=== PATIENT | female | born 1950 | race Caucasian/White ===

== ENCOUNTER 2017-01-27 14:57 | Inpatient (IN) | payer OTHER, MEDICARE ==
[~2017-01-27] VITALS: Ht 165.1 cm; Wt 100.1 kg
[2017-01-27 15:14] VITALS: BP 165/92; PULSE 95; RESP 18; TEMP 98.3; O2SAT 96
[2017-01-27] MEDS ORDERED: SODIUM CHLOR 0.9% 1000 ML INJ 1,000 ML IV SCH (15:32)
--- NOTE | 2017-01-27 15:40 | PD ---
HPI Chief Complaint: Abdominal Pain Time Seen by Provider: 15:26 Travel History International Travel<30 days: No Contact w/Intl Traveler<30days: No Traveled to known affect area: No History of Present Illness HPI 66-year-old female here for evaluation of lower abdominal pain and diarrhea. The patient reports that the symptoms have been going on for last 5 days. She denies melena or hematochezia. Pain is described as sharp and cramping, intermittent, worse with movement and palpation. History of cholecystectomy and appendectomy. She denies fevers or chills. She feels nauseous but has not vomited. No urinary symptoms. No vaginal bleeding or discharge. She has had diverticulitis in the past, and states that this feels very similar. PFSH Past Medical History Diverticulitis: Yes Kidney Stones: Yes Tetanus Vaccination: < 5 Years Influenza Vaccination: No ?: Not Menopausal: Yes Past Surgical History Abdominal Surgery: Yes (Ex. lap.) Appendectomy: Yes Cholecystectomy: Yes Social History Alcohol Use: No Tobacco Use: No Substance Use: No Allergies-Medications (Allergen,Severity, Reaction): Coded Allergies: Barbiturates (Verified Allergy, Severe, Vomiting, hives, 01/27/17) Reported Meds & Prescriptions Reported Meds & Active Scripts Active No Active Prescriptions or Reported Medications Review of Systems Except as stated in HPI: all other systems reviewed are Neg Physical Exam Narrative GENERAL: Well-developed, well-nourished, comfortable, no acute distress. SKIN: Focused skin assessment warm/dry. HEAD: Atraumatic. Normocephalic. EYES: Pupils equal and round. No scleral icterus. No injection or drainage. ENT: Mucous membranes pink and moist. NECK: Trachea midline. No JVD. CARDIOVASCULAR: Regular rate and rhythm. No murmur appreciated. RESPIRATORY: No accessory muscle use. Clear to auscultation. Breath sounds equal bilaterally. GASTROINTESTINAL: Abdomen soft, nondistended. Mild diffuse tenderness without peritoneal signs. Normal bowel sounds. No hernias. MUSCULOSKELETAL: No obvious deformities. No clubbing. No cyanosis. No edema. NEUROLOGICAL: Awake and alert. No obvious cranial nerve deficits. Motor grossly within normal limits. Normal speech. PSYCHIATRIC: Appropriate mood and affect; insight and judgment normal. Data Data Last Documented VS Vital Signs Date Time Temp Pulse Resp B/P Pulse Ox O2 Delivery O2 Flow Rate FiO2 01/27/17 17:30 88 18 144/61 95 Room Air 01/27/17 15:14 98.3 Orders Complete Blood Count With Diff (01/27/17 15:32) Comprehensive Metabolic Panel (01/27/17 15:32) Lipase (01/27/17 15:32) Prothrombin Time / Inr (Pt) (01/27/17 15:32) Act Partial Throm Time (Ptt) (01/27/17 15:32) Urinalysis - C+S If Indicated (01/27/17 15:32) Ct Abd/Pel W Iv Contrast(Rout) (01/27/17 15:32) Iv Access Insert/Monitor (01/27/17 15:32) Ecg Monitoring (01/27/17 15:32) Oximetry (01/27/17 15:32) Morphine Inj (Morphine Inj) (01/27/17 15:45) Ondansetron Inj (Zofran Inj) (01/27/17 15:45) Sodium Chlor 0.9% 1000 Ml Inj (Ns 1000 M (01/27/17 15:32) Sodium Chloride 0.9% Flush (Ns Flush) (01/27/17 15:45) Urine Culture (01/27/17 15:45) Ceftriaxone Inj (Rocephin Inj) (01/27/17 17:15) Iohexol 350 Inj (Omnipaque 350 Inj) (01/27/17 17:22) Ciprofloxacin 400 Mg Premix (Cipro 400 M (01/27/17 17:45) Metronidazole 500 Mg Inj (Flagyl 500 Mg (01/27/17 17:45) Consult Colorectal Surgery (01/27/17 ) Admit Order (Ed Use Only) (01/27/17 18:25) Labs Laboratory Tests Test 01/27/17 15:45 White Blood Count 13.5 TH/MM3 Red Blood Count 5.00 MIL/MM3 Hemoglobin 14.3 GM/DL Hematocrit 42.2 % Mean Corpuscular Volume 84.3 FL Mean Corpuscular Hemoglobin 28.6 PG Mean Corpuscular Hemoglobin 33.9 % Concent Red Cell Distribution Width 11.7 % Platelet Count 432 TH/MM3 Mean Platelet Volume 8.1 FL Neutrophils (%) (Auto) 68.5 % Lymphocytes (%) (Auto) 19.1 % Monocytes (%) (Auto) 9.5 % Eosinophils (%) (Auto) 0.2 % Basophils (%) (Auto) 2.7 % Neutrophils # (Auto) 9.2 TH/MM3 Lymphocytes # (Auto) 2.6 TH/MM3 Monocytes # (Auto) 1.3 TH/MM3 Eosinophils # (Auto) 0.0 TH/MM3 Basophils # (Auto) 0.4 TH/MM3 CBC Comment DIFF FINAL Differential Comment Prothrombin Time 11.9 SEC Prothromb Time International 1.1 RATIO Ratio Activated Partial 36.0 SEC Thromboplast Time Urine Collection Type CLEAN CATCH Urine Color YELLOW Urine Turbidity SLIGHT Urine pH 6.0 Urine Specific [place] 1.018 Urine Protein 30 mg/dL Urine Glucose (UA) NEG mg/dL Urine Ketones TRACE mg/dL Urine Occult Blood MOD Urine Nitrite NEG Urine Bilirubin NEG Urine Leukocyte Esterase SMALL Urine RBC 4-9 /hpf Urine WBC 15-19 /hpf Urine WBC Clumps FEW Urine Squamous Epithelial 6-8 /hpf Cells Urine Amorphous Sediment FEW Urine Bacteria FEW /hpf Urine Hyaline Casts 0-2 /lpf Microscopic Urinalysis Comment CULTURE INDICATED Urine Collection Time 1540 Sodium Level 140 MEQ/L Potassium Level 3.7 MEQ/L Chloride Level 103 MEQ/L Carbon Dioxide Level 23.8 MEQ/L Anion Gap 13 MEQ/L Blood Urea Nitrogen 9 MG/DL Creatinine 0.85 MG/DL Estimat Glomerular Filtration 67 ML/MIN Rate Random Glucose 115 MG/DL Calcium Level 9.5 MG/DL Total Bilirubin 0.8 MG/DL Aspartate Amino Transf 27 U/L (AST/SGOT) Alanine Aminotransferase 32 U/L (ALT/SGPT) Alkaline Phosphatase 104 U/L Total Protein 8.1 GM/DL Albumin 3.6 GM/DL Lipase 106 U/L [facility] Medical Decision Making Medical Screen Exam Complete: Yes Emergency Medical Condition: Yes Differential Diagnosis Diverticulitis, colitis, UTI, cystitis, Narrative Course Vital signs show heart rate 95, blood pressure 165/92, pulse ox 96% on room air , oral temp of 98.3F. CBC shows WBC 13.5, hemoglobin 14.3, hematocrit 42.2, platelets 432. CMP is unremarkable. Lipase is 106. UA shows 30 protein, trace ketones, moderate occult blood, small leukocyte esterase, 4-9 RBCs, 15-19 wbc's, a few WBC clumps, 6-8 epithelial cells, negative nitrites, CT abdomen pelvis: CONCLUSION: 1. Acute diverticulitis with small abscess appears to be in the wall of the colon. 2. Left adnexal cystic and fluid containing process possibly in the left ovary or extension of the above-mentioned abscess. 3. Fatty liver. Patient was made aware of all findings. She was initially given a dose of Rocephin after her UA resulted. After her CT abdomen pelvis resulted, she was written for a dose of Cipro and Flagyl. There is mild abdominal tenderness. No peritoneal signs. Case discussed with on-call colorectal surgeon Dr. Bach. She like patient to be transferred to the main hospital where she will see the patient in consultation and discussed the case with interventional radiology for possible IR drainage. Case discussed with hospitalist Dr. Kahn who will admit the patient to his service. Patient made aware of all findings and plan for admission. Diagnosis Primary Impression: Abscess of sigmoid colon due to diverticulitis Admitting Information Admitting Physician Requests: Admit Scripts No Active Prescriptions or Reported Meds Erasmo Stephenson MD Jan 27, 2017 15:40
[2017-01-27 15:45] VITALS: O2SAT 97
[2017-01-27] MEDS ORDERED: MORPHINE SULFATE 4 MG/ML INJ IV PUSH ONE (15:45)
[2017-01-27] MEDS ORDERED: ONDANSETRON HCL 4 MG/2 ML VIAL IVP ONE (15:45)
[2017-01-27] MEDS ORDERED: SODIUM CHLORIDE 0.9% FLUSH 10 ML FLUSH IV FLUSH PRN ×2 (15:45→19:15)
[2017-01-27 15:57] LABS: AUTOMATED NEUTROPHIL # 9.2 TH/MM3 (1.8-7.7); BASOPHIL # 0.4 TH/MM3 (0-0.2); BASOPHIL % 2.7 % (0.0-2.0); EOSINOPHIL % 0.2 % (0.0-4.0); HEMATOCRIT 42.2 % (35.0-46.0); HEMO FLAGS DIFF FINAL; LYMPH % 19.1 % (9.0-44.0); LYMPHOCYTE # 2.6 TH/MM3 (1.0-4.8); MEAN CELL VOLUME 84.3 FL (80.0-100.0); MEAN CORPUSCULAR HEMOGLOBIN 28.6 PG (27.0-34.0); MEAN CORPUSCULAR HGB CONC 33.9 % (32.0-36.0); MONO % 9.5 % (0.0-8.0); NEUT % 68.5 % (16.0-70.0); PLATELET COUNT 432 TH/MM3 (150-450); RED CELL DISTRIBUTION WIDTH 11.7 % (11.6-17.2); WHITE BLOOD COUNT 13.5 TH/MM3 (4.0-11.0)
[2017-01-27 15:59] LABS: GLUCOSE,URINE NEG (NEG); KETONE, URINE TRACE mg/dL (NEG); NITRITE,URINE NEG (NEG)
[2017-01-27 16:04] LABS: CHLORIDE 103 MEQ/L (98-107); POTASSIUM 3.7 MEQ/L (3.5-5.1); SODIUM (NA) 140 MEQ/L (136-145)
[2017-01-27 16:05] LABS: BLOOD, URINE MOD (NEG); METHOD OF COLLECTION CLEAN CATCH; URINE COLOR YELLOW (YELLW/STRAW)
[2017-01-27 16:06] LABS: WBC, URINE 15-19 /hpf (0-5)
[2017-01-27 16:07] LABS: BACTERIA, URINE FEW /hpf; COMMENT (UR) CULTURE INDICATED; COMMENT2 (UR) MUCOUS PRESENT; CULTURE IF INDICATED CULTURE INDICATED; HYALINE CAST, URINE 0-2 /lpf (RARE); INTERNATIONAL NORMALIZED RATIO 1.1 RATIO; PROTHROMBIN TIME - PATIENT 11.9 SEC (9.8-11.6)
[2017-01-27 16:08] LABS: ANION GAP 13 MEQ/L (5-15); BICARBONATE 23.8 MEQ/L (21.0-32.0); BLOOD UREA NITROGEN 9 MG/DL (7-18)
[2017-01-27 16:11] LABS: ALT (GPT) 32 U/L (10-53); AST (GOT) 27 U/L (15-37); GLOMERULAR FILTRATION RATE 67 ML/MIN (>89)
[2017-01-27 16:12] LABS: TOTAL BILIRUBIN ADULT 0.8 MG/DL (0.2-1.0)
[2017-01-27 16:13] LABS: ALKALINE PHOSPHATASE 104 U/L (45-117)
[2017-01-27] MEDS ORDERED: cefTRIAXone INJ 1,000 MG in SODIUM CHLORIDE 0.9% INJ 100 ML IV ONE (17:15)
[2017-01-27] MEDS ORDERED: IOHEXOL 350 MG/ML 10 ML VIAL (for RAD DIAG) IV ONE (17:22)
[2017-01-27 17:30] VITALS: BP 144/61; PULSE 88; RESP 18; O2SAT 95
--- NOTE | 2017-01-27 17:38 | RADHPO ---
EXAM DATE/TIME: 01/27/2017 17:01 [place] COMPARISON: No previous studies available for comparison. INDICATIONS : Lower abdomen pain for five days. IV CONTRAST: 85 cc Omnipaque 350 (iohexol) IV ORAL CONTRAST: No oral contrast ingested. RADIATION DOSE: 21.26 CTDIvol (mGy) MEDICAL HISTORY : Diverticulitis. Renal calculi. SURGICAL HISTORY : Cholecystectomy. Appendectomy. ENCOUNTER: Initial ACUITY: 4 - 6 days PAIN SCALE: 7/10 LOCATION: Bilateral lower quadrant TECHNIQUE: Volumetric scanning of the abdomen and pelvis was performed. Using automated exposure control and ad justment of the mA and/or kV according to patient size, radiation dose was kept as low as reasonably achievable to obtain optimal diagnostic quality images. FINDINGS: CT Abdomen: The spleen, pancreas, adrenals are unremarkable. There is no evidence for any appreciable pathological adenopathy, free fluid, or bowel obstruction. The liver is fatty without focal lesions or technique. Tiny pericardial effusion is seen. There are simple cysts in both kidneys the largest on the left measures 2.6 cm in size. There is evidence for prior cholecystectomy. CT pelvis: There are numerous diverticuli in sigmoid colon with an area of diverticulitis which also demonstrates an approximate 2.6 cm abscess with gas level within it. In the left adnexa there is an a pproximate 5.5 cm fluid containing structure could potentially be extension of the above-mentioned ab scess or possibly in the left ovary. Moderate degenerative arthritis is seen in the left hip joint. CONCLUSION: 1. Acute diverticulitis with small abscess appears to be in the wall of the colon. 2. Left adnexal cystic and fluid containing process possibly in the left ovary or extension of the ab ove-mentioned abscess. 3. Fatty liver. Andrea Duke MD on January 27, 2017 at 17:31 Board Certified Radiologist. This report was verified electronically.
[2017-01-27] MEDS ORDERED: metroNIDAZOLE 500 MG INJ 100 ML IV ONE (17:45)
[2017-01-27] MEDS ORDERED: CIPROFLOXACIN 400 MG PREMIX 200 ML IV ONE (17:45)
[2017-01-27 19:14] VITALS: BP 140/72; PULSE 85; RESP 18; O2SAT 96
[2017-01-27] MEDS ORDERED: ENALAPRILAT 1.25 MG/ML VIAL IV PUSH PRN (19:15)
[2017-01-27] MEDS ORDERED: NALOXONE HCL 0.4 MG/ML AMP IV PRN (19:15)
[2017-01-27] MEDS ORDERED: HYDROmorphone HCL PF 1 MG/ML VIAL IV PRN (19:15)
[2017-01-27] MEDS ORDERED: ACETAMINOPHEN 325 MG TAB PO PRN ×2 (19:15)
[2017-01-27] MEDS ORDERED: TEMAZEPAM 15 MG CAP PO PRN (19:15)
[2017-01-27] MEDS ORDERED: KETOROLAC TROMETHAMINE 30 MG/ML (IVP) VIAL IVP PRN (19:15)
--- NOTE | 2017-01-27 19:15 | HHI.HP ---
[facility] No Primary Care Physician Admission Diagnosis Sigmoid Diverticulitis with Abscess Diagnoses: (1) Abscess of sigmoid colon due to diverticulitis (2) Elevated blood pressure reading (3) Leukocytosis (4) Sepsis Chief Complaint: Abdominal pain Travel History International Travel<30 Days: No Contact w/Intl Traveler <30 Da: No Traveled to Known Affected Are: No Sepsis Criteria SIRS Criteria (2 or more): Heart rate over 90, WBC > 27564, < 4000 or > 10% bands Sepsis Criteria (SIRS+source): Infect source susp/known Criteria Outcome: Meets sepsis criteria History of Present Illness 66-year-old female with a history of diverticular disease presented to the ED for evaluation of abdominal pain, bloating 5-6 days duration associated with diarrhea, nausea without any emesis. Pain is rated 10/10 in intensity and described as cramping, intermittent and worse with movement. Patient reports prior history of diverticular disease and states she's tried conservative treatment at home with full liquid and amoxicillin 500 mg 1 tablet by mouth twice a day 2 1/2 days without any improvement which she completed this past Sunday. She denies any febrile episode or associated GI bleed. CT Abdomen/ pelvis in ED reveals Acute diverticulitis with small abscess appears to be in the wall of the colon and abnormal labs include WBC 13.5 Review of Systems Other 12 systems reviewed and are negative except for the one mentioned in history of present illness Past Family Social History Past Medical History Diverticular disease Prior history of diverticulitis History of nephrolithiasis Past Surgical History Abdominal Surgery: Yes (Ex. lap.) Appendectomy: Yes Cholecystectomy: Yes Reported Medications Not Currently on any medication Allergies: Coded Allergies: Barbiturates (Verified Allergy, Severe, Vomiting, hives, 01/27/17) Family History Mother had leukemia, from brain aneurysm Father had polio Social History Alcohol Use: No Tobacco Use: No Substance Use: No Physical Exam Vital Signs Vital Signs Date Time Temp Pulse Resp B/P Pulse Ox O2 Delivery O2 Flow Rate FiO2 01/27/17 17:30 88 18 144/61 95 Room Air 01/27/17 16:00 18 4/29/17 15:45 97 Room Air 01/27/17 15:14 98.3 95 18 165/92 96 Physical Exam GENERAL: This is a well-nourished, well-developed patient, in no apparent distress. SKIN: No rashes, ecchymoses or lesions. Cool and dry. HEAD: Atraumatic. Normocephalic. No temporal or scalp tenderness. EYES: Pupils equal round and reactive. Extraocular motions intact. No scleral icterus. No injection or drainage. ENT: Nose without bleeding, purulent drainage or septal hematoma. Throat without erythema, tonsillar hypertrophy or exudate. Uvula midline. Airway patent. NECK: Trachea midline. No JVD or lymphadenopathy. Supple, nontender, no meningeal signs. CARDIOVASCULAR: Regular rate and rhythm without murmurs, gallops, or rubs. RESPIRATORY: Clear to auscultation. Breath sounds equal bilaterally. No wheezes , rales, or rhonchi. GASTROINTESTINAL: Abdomen soft, mildly tender, nondistended. No hepato- splenomegaly, or palpable masses. No guarding. Positive bowel sounds MUSCULOSKELETAL: Extremities without clubbing, cyanosis, or edema. No joint tenderness, effusion, or edema noted. No calf tenderness. Negative Homans sign bilaterally. NEUROLOGICAL: Awake and alert. Cranial nerves II through XII intact. Motor and sensory grossly within normal limits. Five out of 5 muscle strength in all muscle groups. Normal speech. Laboratory Laboratory Tests Test 01/27/17 15:45 White Blood Count 13.5 Red Blood Count 5.00 Hemoglobin 14.3 Hematocrit 42.2 Mean Corpuscular Volume 84.3 Mean Corpuscular Hemoglobin 28.6 Mean Corpuscular Hemoglobin 33.9 Concent Red Cell Distribution Width 11.7 Platelet Count 432 Mean Platelet Volume 8.1 Neutrophils (%) (Auto) 68.5 Lymphocytes (%) (Auto) 19.1 Monocytes (%) (Auto) 9.5 Eosinophils (%) (Auto) 0.2 Basophils (%) (Auto) 2.7 Neutrophils # (Auto) 9.2 Lymphocytes # (Auto) 2.6 Monocytes # (Auto) 1.3 Eosinophils # (Auto) 0.0 Basophils # (Auto) 0.4 CBC Comment DIFF FINAL Differential Comment Prothrombin Time 11.9 Prothromb Time International 1.1 Ratio Activated Partial 36.0 Thromboplast Time Urine Collection Type CLEAN CATCH Urine Color YELLOW Urine Turbidity SLIGHT Urine pH 6.0 Urine Specific [place] 1.018 Urine Protein 30 Urine Glucose (UA) NEG Urine Ketones TRACE Urine Occult Blood MOD Urine Nitrite NEG Urine Bilirubin NEG Urine Leukocyte Esterase SMALL Urine RBC 4-9 Urine WBC 15-19 Urine WBC Clumps FEW Urine Squamous Epithelial 6-8 Cells Urine Amorphous Sediment FEW Urine Bacteria FEW Urine Hyaline Casts 0-2 Microscopic Urinalysis Comment CULTURE INDICATED Urine Collection Time 1540 Sodium Level 140 Potassium Level 3.7 Chloride Level 103 Carbon Dioxide Level 23.8 Anion Gap 13 Blood Urea Nitrogen 9 Creatinine 0.85 Estimat Glomerular Filtration 67 Rate Random Glucose 115 Calcium Level 9.5 Total Bilirubin 0.8 Aspartate Amino Transf 27 (AST/SGOT) Alanine Aminotransferase 32 (ALT/SGPT) Alkaline Phosphatase 104 Total Protein 8.1 Albumin 3.6 Lipase 106 Date/Time Procedure Status Source Growth 01/27/17 15:45 Urine Culture Received Urine Clean Catch Pending Result Diagram: 01/27/17 1545 01/27/17 1545 Imaging Last Impressions Abdomen/Pelvis CT 01/27/17 1532 Signed Impressions: Service Date/Time: Sunday, January 27, 2017 17:01 - CONCLUSION: 1. Acute diverticulitis with small abscess appears to be in the wall of the colon. 2. Left adnexal cystic and fluid containing process possibly in the left ovary or extension of the above-mentioned abscess. 3. Fatty liver. Andrea Duke MD Assessment and Plan Problem List: (1) Sepsis ICD Code: A41.9 Status: Acute (2) Diverticulitis of large intestine with abscess without bleeding ICD Code: K57.20 Status: Acute (3) Abscess of sigmoid colon due to diverticulitis ICD Code: K57.20 Status: Acute (4) Leukocytosis ICD Code: D72.829 Status: Acute (5) Elevated blood pressure reading ICD Code: R03.0 Status: Acute (6) Diverticulitis large intestine ICD Code: K57.32 Status: Acute Assessment and Plan 66-year-old female with Sepsis: Meets sepsis criteria; Heart rate over 90, WBC > 89423, < 4000 or > 10 % bands, Infect source susp/known (abscess due to diverticulitis). Check lactic acid, UA Status post Rocephin, Cipro, Flagyl IV 1 in ED, continue with antibiotics and monitor culture Acute diverticulitis Diverticulitis of large intestine with abscess without bleeding Abscess of the sigmoid colon due to diverticulitis CT abdomen/pelvis noted and review by me with finding of Acute diverticulitis with small abscess appears to be in the wall of the colon Status post Rocephin, Flagyl and Cipro IV 1 in ED, continue with antibiotics pending culture Nothing by mouth, IV fluid hydration and pain management accordingly Consult colorectal surgery. Consider evaluation from interventional radiology for evaluation for percutaneous drainage of abscess Transfer Patient to [facility] May repeat abdomen/pelvics CT within the next 48 hours Leukocytosis Secondary To current to above infectious process, treat as above. Check UA Elevated blood pressure Patient with no known history of hypertension, maybe secondary to poorly controlled pain Pain management accordingly Vasotec when necessary however consider starting oral antihypertensive medication if no improvement DVT prophylaxis: Bilateral SCDs GI prophylaxis: PPI Code Status Full code Discussed Condition With Patient, ED physician Physician Certification 2 Midnight Certification Type: Admission for Inpatient Services Order for Inpatient Services The services are ordered in accordance with Medicare regulations or non- Medicare payer requirements, as applicable. In the case of services not specified as inpatient-only, they are appropriately provided as inpatient services in accordance with the 2-midnight benchmark. Estimated LOS (days): 2 days is the estimated time the patient will need to remain in the hospital, assuming treatment plan goals are met and no additional complications. Post-Hospital Plan: Not yet determined Deni Kahn MD Jan 27, 2017 19:15
[2017-01-27] MEDS: SODIUM CHLOR 0.9% 1000 ML INJ 1,000 ML IV SCH (20:00)
[2017-01-27 20:57] VITALS: BP 141/74; PULSE 82; RESP 18; O2SAT 97
[2017-01-27] MEDS: LACTOBACILLUS ACIDOPHILUS TAB PO SCH (21:00)
[2017-01-27] MEDS: SODIUM CHLORIDE 0.9% FLUSH 10 ML FLUSH IV FLUSH SCH (21:00)
[2017-01-27 22:00] VITALS: BP 173/74; PULSE 90; RESP 20; TEMP 97; O2SAT 96
[2017-01-27] MEDS: KETOROLAC TROMETHAMINE 30 MG/ML (IVP) VIAL IVP PRN (23:14)
[2017-01-28] VITALS: BP 151/71
[2017-01-28] MEDS: metroNIDAZOLE 500 MG INJ 100 ML IV SCH ×3 (02:30→16:56)
[2017-01-28 04:00] VITALS: BP 137/60; PULSE 76; RESP 20; TEMP 95.9; O2SAT 97
[2017-01-28] MEDS: ONDANSETRON HCL 4 MG/2 ML VIAL IVP PRN (06:41)
[2017-01-28 08:00] VITALS: BP 127/62; PULSE 69; RESP 16; TEMP 98.3; O2SAT 95
--- NOTE | 2017-01-28 08:13 | HHI.PR ---
Subjective Remarks Feels improved today. Less abdominal pain. Has been NPO. States last time she ate regular food was Sunday, clears since then. Denies fevers/chills, n/v/d/c D/W nurse Objective Vital Signs Date Time Temp Pulse Resp B/P Pulse Ox O2 Delivery O2 Flow Rate FiO2 01/28/17 04:00 95.9 76 20 137/60 97 01/28/17 00:00 151/71 01/27/17 22:00 97.0 90 20 173/74 96 01/27/17 21:23 84 18 97 01/27/17 20:57 82 18 141/74 97 Room Air 01/27/17 19:14 85 18 140/72 96 Room Air 01/27/17 17:30 88 18 144/61 95 Room Air 01/27/17 16:00 18 01/27/17 15:45 97 Room Air 01/27/17 15:14 98.3 95 18 165/92 96 I/O 01/27/17 01/27/17 01/27/17 01/28/17 01/28/17 01/28/17 07:00 15:00 23:00 07:00 15:00 23:00 Intake Total 1100 ml 387 ml Output Total 400 ml Balance 1100 ml -13 ml Intake Oral 0 ml IV Total 1100 ml 387 ml Output Urine Total 400 ml Result Diagram: 01/27/17 1545 01/27/17 1545 Imaging Last Impressions Abdomen/Pelvis CT 01/27/17 1532 Signed Impressions: Service Date/Time: Friday, January 27, 2017 17:01 - CONCLUSION: 1. Acute diverticulitis with small abscess appears to be in the wall of the colon. 2. Left adnexal cystic and fluid containing process possibly in the left ovary or extension of the above-mentioned abscess. 3. Fatty liver. Andrea Duke MD Objective Remarks GENERAL: This is a well-nourished, well-developed patient, in no apparent distress. SKIN: No rashes, ecchymoses or lesions. Cool and dry. CARDIOVASCULAR: Regular rate and rhythm without murmurs, gallops, or rubs. RESPIRATORY: Clear to auscultation. Breath sounds equal bilaterally. No wheezes , rales, or rhonchi. GASTROINTESTINAL: Positive bowel sounds. Abdomen soft, mildly tender in LLQ, other quadrants nontender, nondistended. MUSCULOSKELETAL: Extremities without clubbing, cyanosis, or edema. NEUROLOGICAL: Awake and alert. Normal speech. A/P Problem List: (1) Leukocytosis ICD Code: D72.829 (2) Sepsis ICD Code: A41.9 (3) Elevated blood pressure reading ICD Code: R03.0 (4) Abscess of sigmoid colon due to diverticulitis ICD Code: K57.20 (5) Diverticulitis large intestine ICD Code: K57.32 (6) Diverticulitis of large intestine with abscess without bleeding ICD Code: K57.20 Assessment and Plan A/P: Diverticular disease Prior history of diverticulitis History of nephrolithiasis Appendectomy Cholecystectomy 66-year-old female with: Sepsis: Lactic acid 1.1 Urine culture pending Continue RocephinGaryro, Flagyl IV Acute diverticulitis: Diverticulitis of large intestine with abscess without bleeding Abscess of the sigmoid colon due to diverticulitis Consulted colorectal surgery. Consider evaluation from interventional radiology for evaluation for percutaneous drainage of abscess Continue with antibiotics as above, follow culture Nothing by mouth, IV fluid hydration and pain management Consider repeat abdomen/pelvics CT within 48hrs of admission Leukocytosis Secondary to above Elevated blood pressure: improved No known history of hypertension, likely secondary to pain Pain management Vasotec when necessary DVT prophylaxis: Bilateral SCDs GI prophylaxis: PPI Code Status Full code Yi Melgar MD Jan 28, 2017 08:13 Pain management Vasotec when necessary, Consider starting oral antihypertensive medication if no improvement DVT prophylaxis: Bilateral SCDs GI prophylaxis: PPI Code Status Full code Yi Melgar MD Jan 28, 2017 08:13
[2017-01-28] MEDS: LACTOBACILLUS ACIDOPHILUS TAB PO SCH ×2 (08:46→22:08)
[2017-01-28] MEDS: CIPROFLOXACIN 400 MG PREMIX 200 ML IV SCH ×2 (08:46→22:09)
[2017-01-28] MEDS: PANTOPRAZOLE SODIUM 40 MG VIAL IV PUSH SCH (08:46)
[2017-01-28] MEDS: SODIUM CHLORIDE 0.9% FLUSH 10 ML FLUSH IV FLUSH SCH ×2 (08:47→21:00)
[2017-01-28] MEDS: SODIUM CHLOR 0.9% 1000 ML INJ 1,000 ML IV SCH ×2 (08:47→22:07)
[2017-01-28 12:00] VITALS: BP 129/65; PULSE 67; RESP 18; TEMP 97.7; O2SAT 96
--- NOTE | 2017-01-28 13:01 | MB ---
cc: PEÑA GARCÍA M.D. DATE OF CONSULTATION: 01/28/2017. REASON FOR CONSULTATION / CHIEF COMPLAINT: Diverticulitis with contained perforation. HISTORY OF PRESENT ILLNESS: The patient is a 66-year-old female with three to four previous attacks of diverticular disease. She began having pain on Sunday of this week, five days prior to today, and came to the emergency room yesterday. She describes left lower quadrant pain, with elevated temperatures. She has had no nausea or vomiting. She describes no diarrhea or constipation to me although she did reportedly have diarrhea when she came to the emergency department. She did say that she had amoxicillin at home and began taking that twice daily without improvement. She has had three or four previous episodes of diverticulitis, the most recent being about a year and a half ago. Her most recent colonoscopy was about four years ago and she did have removal of two small polyps and they had recommended a 5-year recall. Her normal bowel pattern is every other day without straining. She denies any bright red blood or melena. She denies any perianal pain. She denies any family history of colorectal cancer or polyps. PAST MEDICAL HISTORY: By report of the patient, it is negative but she does admit she has not been to a doctor in at least five years. PAST SURGICAL HISTORY: 1. Open cholecystectomy. 2. Appendectomy. ALLERGIES: BARBITURATES. MEDICATIONS: None. SOCIAL HISTORY: The patient denies tobacco, alcohol or substance abuse. REVIEW OF SYSTEMS: Review of systems is negative for chest pain, shortness of breath, difficulty breathing, difficulty with mood or mentation, difficulty with ambulation, dysuria or hematuria. PHYSICAL EXAMINATION: GENERAL: This is an alert female who appears comfortable. NEUROLOGIC: Grossly intact. SKIN: Skin is warm and dry. CARDIOVASCULAR: Regular rate. HEAD, EYES, EARS, NOSE, THROAT: Head is normocephalic, atraumatic. PULMONARY: Breathing is symmetric bilaterally and nonlabored. ABDOMEN: Soft. Obese. She is tender to palpation in the left lower quadrant. There is no guarding or rebound. EXTREMITIES: trace edema. LABORATORY DATA: Laboratory tests reveal a white count of 13.5 on admission. Hemoglobin of 14.3 and platelets of 432,000. Chemistry: Sodium 140, potassium 3.7, chloride 103, bicarb is 23.8, BUN is 9, creatinine is 0.85 and glucose is 115. Coags are normal. The urinalysis is pending. IMAGING STUDIES: CT scan is consistent with diverticulitis with a small 2.6 cm abscess next to the sigmoid colon. In addition, there is a 5.5 cm fluid-containing structure in the left adnexa which could be the left ovary or possibly an extenuation of the abscess. She was also noted have a fatty liver. IMPRESSION: Diverticulitis with a contained perforation and abscess. PLAN: Radiology feels that this abscess is too small for them to effectively drain with CT-guidance, so I believe that IV antibiotics with bowel rest until we can clear her of the acute episode is the most appropriate course of action. I have discussed this with the patient. She will need an interval colectomy eight to [address] if we can clear her of this acute episode. If however, she either worsens or fails to improve, we may need to consider more urgent surgery with a temporary colostomy. I will continue to follow along with you. Thank you very much for your kind referral. MD AARON Casas/KRISHAN /12:14 PM /12:54 PM SHAUNA
[2017-01-28 13:10] LABS: AUTOMATED NEUTROPHIL # 5.5 TH/MM3 (1.8-7.7); BASOPHIL % 0.6 % (0.0-2.0); EOSINOPHIL # 0.1 TH/MM3 (0-0.4); EOSINOPHIL % 0.8 % (0.0-4.0); HEMATOCRIT 34.7 % (35.0-46.0); HEMO FLAGS DIFF FINAL; LYMPH % 21.2 % (9.0-44.0); LYMPHOCYTE # 1.7 TH/MM3 (1.0-4.8); MEAN CELL VOLUME 83.5 FL (80.0-100.0); MEAN CORPUSCULAR HEMOGLOBIN 28.9 PG (27.0-34.0); MEAN CORPUSCULAR HGB CONC 34.6 % (32.0-36.0); NEUT % 67.4 % (16.0-70.0); PLATELET COUNT 346 TH/MM3 (150-450); RED BLOOD COUNT 4.16 MIL/MM3 (4.00-5.30); RED CELL DISTRIBUTION WIDTH 12.9 % (11.6-17.2); WHITE BLOOD COUNT 8.1 TH/MM3 (4.0-11.0)
[2017-01-28 13:30] LABS: ALKALINE PHOSPHATASE 80 U/L (45-117); ALT (GPT) 29 U/L (10-53); ANION GAP 7 MEQ/L (5-15); AST (GOT) 27 U/L (15-37); BICARBONATE 25.9 MEQ/L (21.0-32.0); BLOOD UREA NITROGEN 10 MG/DL (7-18); CHLORIDE 106 MEQ/L (98-107); GLOMERULAR FILTRATION RATE 80 ML/MIN (>89); POTASSIUM 3.5 MEQ/L (3.5-5.1); SODIUM (NA) 139 MEQ/L (136-145); TOTAL BILIRUBIN ADULT 0.6 MG/DL (0.2-1.0)
[2017-01-28] MEDS: KETOROLAC TROMETHAMINE 30 MG/ML (IVP) VIAL IVP PRN ×2 (15:46→22:13)
[2017-01-28 20:00] VITALS: BP 135/63; PULSE 76; RESP 20; TEMP 97; O2SAT 97
[2017-01-29] VITALS: BP 128/68; PULSE 80; RESP 20; TEMP 97.4; O2SAT 95
[2017-01-29] MEDS: metroNIDAZOLE 500 MG INJ 100 ML IV SCH ×3 (02:57→17:36)
[2017-01-29 05:11] LABS: AUTOMATED NEUTROPHIL # 4.3 TH/MM3 (1.8-7.7); BASOPHIL % 0.5 % (0.0-2.0); EOSINOPHIL # 0.2 TH/MM3 (0-0.4); EOSINOPHIL % 2.4 % (0.0-4.0); HEMATOCRIT 36.3 % (35.0-46.0); HEMO FLAGS DIFF FINAL; MEAN CELL VOLUME 84.6 FL (80.0-100.0); MEAN CORPUSCULAR HEMOGLOBIN 28.4 PG (27.0-34.0); MEAN CORPUSCULAR HGB CONC 33.6 % (32.0-36.0); NEUT % 59.1 % (16.0-70.0); PLATELET COUNT 331 TH/MM3 (150-450); RED BLOOD COUNT 4.29 MIL/MM3 (4.00-5.30); RED CELL DISTRIBUTION WIDTH 12.5 % (11.6-17.2); WHITE BLOOD COUNT 7.3 TH/MM3 (4.0-11.0)
[2017-01-29 05:34] LABS: BICARBONATE 24.7 MEQ/L (21.0-32.0); POTASSIUM 3.4 MEQ/L (3.5-5.1)
[2017-01-29] MEDS: KETOROLAC TROMETHAMINE 30 MG/ML (IVP) VIAL IVP PRN ×2 (06:21→13:37)
[2017-01-29] MEDS: ONDANSETRON HCL 4 MG/2 ML VIAL IVP PRN ×3 (06:21→21:29)
--- NOTE | 2017-01-29 07:47 | HHI.PR ---
Subjective Remarks resting comfortably with no distress. abdominal pain is better. no nausea or vomiting. afebrile. Objective Vitals Vital Signs Date Time Temp Pulse Resp B/P Pulse Ox O2 Delivery O2 Flow Rate FiO2 01/29/17 00:00 97.4 80 20 128/68 95 01/28/17 20:00 97.0 76 20 135/63 97 01/28/17 12:00 97.7 67 18 129/65 96 01/28/17 08:00 98.3 69 16 127/62 95 I/O 01/28/17 01/28/17 01/28/17 01/29/17 01/29/17 01/29/17 07:00 15:00 23:00 07:00 15:00 23:00 Intake Total 387 ml 729 ml 1110 ml 646 ml Output Total 400 ml 600 ml 550 ml 600 ml Balance -13 ml 129 ml 560 ml 46 ml Intake Oral 0 ml 0 ml 0 ml 0 ml IV Total 387 ml 729 ml 1110 ml 646 ml Output Urine Total 400 ml 600 ml 550 ml 600 ml # Bowel Movements 2 0 0 Result Diagram: 01/29/17 0405 01/29/17 0405 Imaging Last Impressions Abdomen/Pelvis CT 01/27/17 1532 Signed Impressions: Service Date/Time: Friday, January 27, 2017 17:01 - CONCLUSION: 1. Acute diverticulitis with small abscess appears to be in the wall of the colon. 2. Left adnexal cystic and fluid containing process possibly in the left ovary or extension of the above-mentioned abscess. 3. Fatty liver. Andrea Duke MD Objective Remarks GENERAL: This is a well-nourished, well-developed patient, in no apparent distress. CARDIOVASCULAR: Regular rate and regular rhythm without murmurs, gallops, or rubs. RESPIRATORY: Clear to auscultation. Breath sounds equal bilaterally. No wheezes , rales, or rhonchi. GASTROINTESTINAL: Abdomen soft, mild LLQ tenderness, nondistended. Normal, active bowel sounds MUSCULOSKELETAL: Extremities without clubbing, cyanosis, or edema. NEURO: Alert & Oriented x4 to person, place, time, situation. Moves all ext x4 Procedures none Medications and IVs Current Medications Morphine Sulfate (Morphine Inj) 4 mg ONCE ONCE IV PUSH Last administered on t 15:54; Start 01/27/17 at 15:45; Stop 01/27/17 at 15:46; Status DC Ondansetron HCl 4 mg 4 mg ONCE ONCE IVP Last administered on 01/27/17 15:54; Start 01/27/17 at 15:45; Stop 01/27/17 at 15:46; Status DC Sodium Chloride (NS 1000 ml Inj) 1,000 ml @ 1,000 mls/hr Q1H IV Last administered on 01/27/17 15:54; Start 01/27/17 at 15:32; Stop 01/27/17 at 16:31 ; Status DC Sodium Chloride 2 ml 2 ml UNSCH PRN IV FLUSH FLUSH AFTER USING IV ACCESS; Start 01/27/17 at 15:45; Stop 01/27/17 at 19:11; Status DC Ceftriaxone Sodium/Sodium Chloride (Rocephin Inj/NS Inj) 100 ml @ 200 mls/hr ONCE ONCE IV Last administered on 01/27/17 17:31; Start 01/27/17 at 17:15; Stop 01/27/17 at 17:44; Status DC Iohexol 85 ml 85 ml STK-MED ONCE IV ; Start 01/27/17 at 17:22; Stop 01/27/17 at 17:23; Status DC Ciprofloxacin/ Dextrose 200 ml @ 200 mls/hr ONCE ONCE IV Last administered on 01/27/17 20:00; Start 01/27/17 at 17:45; Stop 01/27/17 at 18:44; Status DC Metronidazole 100 ml @ 100 mls/hr ONCE ONCE IV Last administered on 18:00; Start 01/27/17 at 17:45; Stop 01/27/17 at 18:44; Status DC Sodium Chloride (NS 1000 ml Inj) 1,000 ml @ 70 mls/hr [id number] IV Last administered on 01/28/17 22:07; Start 01/27/17 at 19:05 Sodium Chloride (NS Flush) 2 ml UNSCH PRN IV FLUSH FLUSH AFTER USING IV ACCESS Last administered on 01/28/17 08:47; Start 01/27/17 at 19:15 Sodium Chloride (NS Flush) 2 ml BID IV FLUSH ; Start 01/27/17 at 21:00 Acetaminophen (Tylenol) 650 mg Q4H PRN PO TEMP > 100.4; Start 01/27/17 at 19:15 Ondansetron HCl (Zofran Inj) 4 mg Q6H PRN IVP NAUSEA OR VOMITING Last administered on 01/29/17 06:21; Start 01/27/17 at 19:15 Temazepam (Restoril) 15 mg HS PRN PO INSOMNIA; Start 01/27/17 at 19:15 Acetaminophen (Tylenol) 650 mg Q6H PRN PO PAIN SCALE 1 TO 2; Start 01/27/17 at 19:15 Ketorolac Tromethamine (Toradol Inj) 15 mg Q6H PRN IVP Pain 3-5; if unable to take PO; Start 01/27/17 at 19:15; Stop 02/01/17 at 19:14 Ketorolac Tromethamine (Toradol Inj) 30 mg Q6H PRN IVP Pain 6-10;if unable to take PO Last administered on 01/29/17 06:21; Start 01/27/17 at 19:15; Stop at 19:14 Hydromorphone HCl (Dilaudid Pf Inj) 1 mg Q4H PRN IV BREAKTHROUGH PAIN; Start at 19:15 Naloxone HCl 0.4 mg 0.4 mg UNSCH PRN IV SEE LABEL COMMENTS; Start 01/27/17 at 19:15 Metronidazole 100 ml @ 100 mls/hr Q8H IV Last administered on 01/29/17 02:57; Start 01/28/17 at 02:00 Ciprofloxacin/ Dextrose (Cipro 400 Mg Premix) 200 ml @ 200 mls/hr Q12H IV Last administered on 01/28/17 22:09; Start 01/28/17 at 09:00 Lactobacillus Acidophilus (Lactinex) 1 tab Q12HR PO Last administered on 22:08; Start 01/27/17 at 21:00 Enalaprilat (Vasotec Inj) 1.25 mg Q6H PRN IV PUSH SBP>160, DBP>90; Start 01/27 at 19:15 Pantoprazole Sodium (Protonix Inj) 40 mg Q24H IV PUSH Last administered on 01/28 08:46; Start 01/28/17 at 09:00 A/P Assessment and Plan A/P 66-year-old female with: Sepsis due to diverticulitis: Lactic acid 1.1 Urine culture with mixed deana Continue Cipro Flagyl IV Acute diverticulitis: Diverticulitis of large intestine with abscess without bleeding Abscess of the sigmoid colon due to diverticulitis colorectal surgery consult appreciated; recommended medical treatment at this time; abscess is too small to be drained at this time. Nothing by mouth, IV fluid hydration and pain management Leukocytosis-resolved Secondary to above Elevated blood pressure: improved No known history of hypertension, likely secondary to pain Pain management Vasotec when necessary mild hypokalemia; will replace. DVT prophylaxis: Bilateral SCDs GI prophylaxis: PPI Code Status Full code Adriel Chambers MD January 29, 2017 07:47
[2017-01-29] MEDS: LACTOBACILLUS ACIDOPHILUS TAB PO SCH ×2 (07:58→21:23)
[2017-01-29] MEDS: PANTOPRAZOLE SODIUM 40 MG VIAL IV PUSH SCH (07:58)
[2017-01-29] MEDS: SODIUM CHLORIDE 0.9% FLUSH 10 ML FLUSH IV FLUSH SCH ×2 (07:59→21:00)
[2017-01-29] MEDS: CIPROFLOXACIN 400 MG PREMIX 200 ML IV SCH ×2 (07:59→21:21)
[2017-01-29 08:00] VITALS: BP 138/65; PULSE 70; RESP 16; TEMP 95.5; O2SAT 95
[2017-01-29] MEDS: NS + KCL 20 MEQ INJ 1,000 ML IV SCH ×2 (08:05→21:23)
[2017-01-29 12:00] VITALS: BP 130/99; PULSE 74; RESP 19; TEMP 96.3; O2SAT 95
--- NOTE | 2017-01-29 14:56 | HHI.PR ---
Subjective Remarks Diverticulitis Less pain, slight nausea Objective Vital Signs Date Time Temp Pulse Resp B/P Pulse Ox O2 Delivery O2 Flow Rate FiO2 01/29/17 12:00 96.3 74 19 130/99 95 01/29/17 08:00 95.5 70 16 138/65 95 01/29/17 00:00 97.4 80 20 128/68 95 01/28/17 20:00 97.0 76 20 135/63 97 I/O 01/28/17 01/28/17 01/28/17 01/29/17 01/29/17 01/29/17 07:00 15:00 23:00 07:00 15:00 23:00 Intake Total 387 ml 729 ml 1110 ml 646 ml 744 ml Output Total 400 ml 600 ml 550 ml 600 ml Balance -13 ml 129 ml 560 ml 46 ml 744 ml Intake Oral 0 ml 0 ml 0 ml 0 ml IV Total 387 ml 729 ml 1110 ml 646 ml 744 ml Output Urine Total 400 ml 600 ml 550 ml 600 ml # Bowel Movements 2 0 0 Result Diagram: 01/29/17 0405 01/29/17 0405 Objective Remarks Abdomen soft, nondistended, less tender Assessment and Plan Assessment and Plan Try clears Continue mobilization Elsa Bach MD January 29, 2017 14:56
[2017-01-29 16:00] VITALS: BP 140/67; PULSE 69; RESP 16; TEMP 96.2; O2SAT 96
[2017-01-29 20:00] VITALS: BP 149/92; PULSE 73; RESP 20; TEMP 97.8; O2SAT 95
[2017-01-30] VITALS: BP 150/90; PULSE 78; RESP 20; TEMP 98; O2SAT 97
[2017-01-30] MEDS: metroNIDAZOLE 500 MG INJ 100 ML IV SCH ×3 (01:30→17:32)
--- NOTE | 2017-01-30 07:49 | HHI.PR ---
Subjective Remarks resting comfortably with no distress. abdominal pain is better. tolerating the liquid diet. no nausea or vomiting. afebrile. Objective Vitals Vital Signs Date Time Temp Pulse Resp B/P Pulse Ox O2 Delivery O2 Flow Rate FiO2 01/30/17 00:00 98.0 78 20 150/90 97 01/29/17 20:00 97.8 73 20 149/92 95 01/29/17 16:00 96.2 69 16 140/67 96 01/29/17 12:00 96.3 74 19 130/99 95 01/29/17 08:00 95.5 70 16 138/65 95 I/O 01/29/17 01/29/17 01/29/17 01/30/17 01/30/17 01/30/17 07:00 15:00 23:00 07:00 15:00 23:00 Intake Total 646 ml 744 ml 1877 ml 1087 ml Output Total 600 ml 700 ml 900 ml 500 ml Balance 46 ml 44 ml 977 ml 587 ml Intake Oral 0 ml 0 ml 680 ml 440 ml IV Total 646 ml 744 ml 1197 ml 647 ml Output Urine Total 600 ml 700 ml 900 ml 500 ml # Bowel Movements 0 0 1 0 Result Diagram: 01/29/17 0405 01/29/17 0405 Imaging Last Impressions Abdomen/Pelvis CT 01/27/17 1532 Signed Impressions: Service Date/Time: Friday, January 27, 2017 17:01 - CONCLUSION: 1. Acute diverticulitis with small abscess appears to be in the wall of the colon. 2. Left adnexal cystic and fluid containing process possibly in the left ovary or extension of the above-mentioned abscess. 3. Fatty liver. Andrea Duke MD Objective Remarks GENERAL: This is a well-nourished, well-developed patient, in no apparent distress. CARDIOVASCULAR: Regular rate and regular rhythm without murmurs, gallops, or rubs. RESPIRATORY: Clear to auscultation. Breath sounds equal bilaterally. No wheezes , rales, or rhonchi. GASTROINTESTINAL: Abdomen soft, mild LLQ tenderness, nondistended. Normal, active bowel sounds MUSCULOSKELETAL: Extremities without clubbing, cyanosis, or edema. NEURO: Alert & Oriented x4 to person, place, time, situation. Moves all ext x4 Procedures none Medications and IVs Current Medications Morphine Sulfate (Morphine Inj) 4 mg ONCE ONCE IV PUSH Last administered on 15:54; Start 01/27/17 at 15:45; Stop 01/27/17 at 15:46; Status DC Ondansetron HCl 4 mg 4 mg ONCE ONCE IVP Last administered on 01/27/17 15:54; Start 01/27/17 at 15:45; Stop 01/27/17 at 15:46; Status DC Sodium Chloride (NS 1000 ml Inj) 1,000 ml @ 1,000 mls/hr Q1H IV Last administered on 01/27/17 15:54; Start 01/27/17 at 15:32; Stop 01/27/17 at 16:31 ; Status DC Sodium Chloride 2 ml 2 ml UNSCH PRN IV FLUSH FLUSH AFTER USING IV ACCESS; Start 01/27/17 at 15:45; Stop 01/27/17 at 19:11; Status DC Ceftriaxone Sodium/Sodium Chloride (Rocephin Inj/NS Inj) 100 ml @ 200 mls/hr ONCE ONCE IV Last administered on 01/27/17 17:31; Start 01/27/17 at 17:15; Stop 01/27/17 at 17:44; Status DC Iohexol 85 ml 85 ml STK-MED ONCE IV ; Start 01/27/17 at 17:22; Stop 01/27/17 at 17:23; Status DC Ciprofloxacin/ Dextrose 200 ml @ 200 mls/hr ONCE ONCE IV Last administered on 01/27/17 20:00; Start 01/27/17 at 17:45; Stop 01/27/17 at 18:44; Status DC Metronidazole 100 ml @ 100 mls/hr ONCE ONCE IV Last administered on 18:00; Start 01/27/17 at 17:45; Stop 01/27/17 at 18:44; Status DC Sodium Chloride (NS 1000 ml Inj) 1,000 ml @ 70 mls/hr [id number] IV Last administered on 01/28/17 22:07; Start 01/27/17 at 19:05; Stop 01/29/17 at 07:51 ; Status DC Sodium Chloride (NS Flush) 2 ml UNSCH PRN IV FLUSH FLUSH AFTER USING IV ACCESS Last administered on 01/28/17 08:47; Start 01/27/17 at 19:15 Sodium Chloride (NS Flush) 2 ml BID IV FLUSH Last administered on 01/29/17 07: 59; Start 01/27/17 at 21:00 Acetaminophen (Tylenol) 650 mg Q4H PRN PO TEMP > 100.4; Start 01/27/17 at 19:15 Ondansetron HCl (Zofran Inj) 4 mg Q6H PRN IVP NAUSEA OR VOMITING Last administered on 01/29/17 21:29; Start 01/27/17 at 19:15 Temazepam (Restoril) 15 mg HS PRN PO INSOMNIA; Start 01/27/17 at 19:15 Acetaminophen (Tylenol) 650 mg Q6H PRN PO PAIN SCALE 1 TO 2; Start 01/27/17 at 19:15 Ketorolac Tromethamine (Toradol Inj) 15 mg Q6H PRN IVP Pain 3-5; if unable to take PO; Start 01/27/17 at 19:15; Stop 02/01/17 at 19:14 Ketorolac Tromethamine (Toradol Inj) 30 mg Q6H PRN IVP Pain 6-10;if unable to take PO Last administered on 01/29/17 13:37; Start 01/27/17 at 19:15; Stop at 19:14 Hydromorphone HCl (Dilaudid Pf Inj) 1 mg Q4H PRN IV BREAKTHROUGH PAIN; Start at 19:15 Naloxone HCl 0.4 mg 0.4 mg UNSCH PRN IV SEE LABEL COMMENTS; Start 01/27/17 at 19:15 Metronidazole 100 ml @ 100 mls/hr Q8H IV Last administered on 01/30/17 01:30; Start 01/28/17 at 02:00 Ciprofloxacin/ Dextrose (Cipro 400 Mg Premix) 200 ml @ 200 mls/hr Q12H IV Last administered on 01/29/17 21:21; Start 01/28/17 at 09:00 Lactobacillus Acidophilus (Lactinex) 1 tab Q12HR PO Last administered on 21:23; Start 01/27/17 at 21:00 Enalaprilat (Vasotec Inj) 1.25 mg Q6H PRN IV PUSH SBP>160, DBP>90; Start 01/27 at 19:15 Pantoprazole Sodium 40 mg 40 mg Q24H IV PUSH Last administered on 01/29/17 07: 58; Start 01/28/17 at 09:00 Potassium Chloride/Sodium Chloride (NS + KCl 20 Meq Inj) 1,000 ml @ 70 mls/hr [id number] IV Last administered on 01/29/17 21:23; Start 01/29/17 at 08:00 A/P Assessment and Plan A/P 66-year-old female with: Sepsis due to Diverticulitis of large intestine with abscess without bleeding Continue Tyrese Hernandez IV colorectal surgery consult appreciated; recommended medical treatment at this time; abscess is too small to be drained at this time. started on liquid diet , continue IV fluid hydration and pain management Leukocytosis-resolved Secondary to above Elevated blood pressure: improved No known history of hypertension, likely secondary to pain Pain management Vasotec when necessary mild hypokalemia; replaced. DVT prophylaxis: Bilateral SCDs GI prophylaxis: PPI Code Status Full code Adriel Chambers MD January 30, 2017 07:49
[2017-01-30 08:00] VITALS: BP 154/75; PULSE 69; RESP 16; TEMP 95.6; O2SAT 94
[2017-01-30] MEDS: CIPROFLOXACIN 400 MG PREMIX 200 ML IV SCH ×2 (09:14→21:20)
[2017-01-30] MEDS: SODIUM CHLORIDE 0.9% FLUSH 10 ML FLUSH IV FLUSH SCH ×2 (09:14→21:00)
[2017-01-30] MEDS: PANTOPRAZOLE SODIUM 40 MG VIAL IV PUSH SCH (09:15)
[2017-01-30] MEDS: LACTOBACILLUS ACIDOPHILUS TAB PO SCH ×2 (09:15→21:20)
[2017-01-30] MEDS: ONDANSETRON HCL 4 MG/2 ML VIAL IVP PRN (09:19)
[2017-01-30] MEDS: NS + KCL 20 MEQ INJ 1,000 ML IV SCH (10:49)
--- NOTE | 2017-01-30 11:42 | HHI.PR ---
Subjective Remarks Diverticulitis Less pain, anxious Objective Vital Signs Date Time Temp Pulse Resp B/P Pulse Ox O2 Delivery O2 Flow Rate FiO2 01/30/17 08:00 95.6 69 16 154/75 94 01/30/17 00:00 98.0 78 20 150/90 97 01/29/17 20:00 97.8 73 20 149/92 95 01/29/17 16:00 96.2 69 16 140/67 96 01/29/17 12:00 96.3 74 19 130/99 95 I/O 01/29/17 01/29/17 01/29/17 01/30/17 01/30/17 01/30/17 07:00 15:00 23:00 07:00 15:00 23:00 Intake Total 646 ml 744 ml 1877 ml 1087 ml 258 ml Output Total 600 ml 700 ml 900 ml 500 ml 300 ml Balance 46 ml 44 ml 977 ml 587 ml -42 ml Intake Oral 0 ml 0 ml 680 ml 440 ml IV Total 646 ml 744 ml 1197 ml 647 ml 258 ml Output Urine Total 600 ml 700 ml 900 ml 500 ml 300 ml # Bowel Movements 0 0 1 0 Result Diagram: 01/29/17 0405 01/29/17 0405 Objective Remarks Abdomen soft, nondistended, less tender Assessment and Plan Assessment and Plan MOBILIZE Try full liquids Elsa Bach MD January 30, 2017 11:42
[2017-01-30 12:00] VITALS: BP 142/68; PULSE 67; RESP 16; TEMP 97.2; O2SAT 95
[2017-01-30 16:00] VITALS: BP 146/65; PULSE 70; RESP 16; TEMP 96.6; O2SAT 96
[2017-01-30 20:00] VITALS: BP 124/68; PULSE 72; RESP 17; TEMP 96.1; O2SAT 96
[2017-01-31] VITALS: BP 144/66; PULSE 69; RESP 17; TEMP 96.6; O2SAT 98
[2017-01-31] MEDS: metroNIDAZOLE 500 MG INJ 100 ML IV SCH ×3 (03:09→16:35)
[2017-01-31 04:00] VITALS: BP 128/61; PULSE 69; RESP 17; TEMP 96.1; O2SAT 96
[2017-01-31 06:22] LABS: AUTOMATED NEUTROPHIL # 3.6 TH/MM3 (1.8-7.7); BASOPHIL % 0.6 % (0.0-2.0); EOSINOPHIL # 0.2 TH/MM3 (0-0.4); HEMATOCRIT 37.2 % (35.0-46.0); HEMO FLAGS DIFF FINAL; LYMPH % 33.9 % (9.0-44.0); LYMPHOCYTE # 2.3 TH/MM3 (1.0-4.8); MEAN CORPUSCULAR HEMOGLOBIN 28.7 PG (27.0-34.0); MEAN CORPUSCULAR HGB CONC 34.2 % (32.0-36.0); MONO % 10.6 % (0.0-8.0); NEUT % 51.9 % (16.0-70.0); PLATELET COUNT 378 TH/MM3 (150-450); RED BLOOD COUNT 4.43 MIL/MM3 (4.00-5.30); RED CELL DISTRIBUTION WIDTH 13.1 % (11.6-17.2); WHITE BLOOD COUNT 6.9 TH/MM3 (4.0-11.0)
[2017-01-31 06:43] LABS: BICARBONATE 23.9 MEQ/L (21.0-32.0); POTASSIUM 3.2 MEQ/L (3.5-5.1)
[2017-01-31 08:00] VITALS: BP 133/63; PULSE 67; RESP 17; TEMP 97.4; O2SAT 97
--- NOTE | 2017-01-31 08:55 | HHI.PR ---
Subjective Remarks Diverticulitis Anxious about going home Objective Vital Signs Date Time Temp Pulse Resp B/P Pulse Ox O2 Delivery O2 Flow Rate FiO2 01/31/17 08:00 97.4 67 17 133/63 97 01/31/17 04:00 96.1 69 17 128/61 96 01/31/17 00:00 96.6 69 17 144/66 98 01/30/17 20:00 96.1 72 17 124/68 96 01/30/17 16:00 96.6 70 16 146/65 96 01/30/17 12:00 97.2 67 16 142/68 95 I/O 01/30/17 01/30/17 01/30/17 01/31/17 01/31/17 01/31/17 07:00 15:00 23:00 07:00 15:00 23:00 Intake Total 1087 ml 803 ml 240 ml 540 ml 120 ml Output Total 500 ml 300 ml 850 ml Balance 587 ml 503 ml -610 ml 540 ml 120 ml Intake Oral 440 ml 240 ml 240 ml 240 ml 120 ml IV Total 647 ml 563 ml 300 ml Output Urine Total 500 ml 300 ml 800 ml Stool Total 50 ml # Voids 4 1 4 # Bowel Movements 0 1 Result Diagram: 01/31/17 0534 01/31/17 0536 Objective Remarks Abdomen soft, nondistended, mild tenderness Assessment and Plan Assessment and Plan Regular diet this am OK for discharge this afternoon if tolerates Elsa Bach MD January 31, 2017 08:55
[2017-01-31] MEDS ORDERED: METR500T10 PO (08:57)
[2017-01-31] MEDS ORDERED: CIPR-9 PO (08:57)
[2017-01-31] MEDS: CIPROFLOXACIN 400 MG PREMIX 200 ML IV SCH (09:10)
[2017-01-31] MEDS: LACTOBACILLUS ACIDOPHILUS TAB PO SCH (09:11)
[2017-01-31] MEDS: PANTOPRAZOLE SODIUM 40 MG VIAL IV PUSH SCH (09:11)
[2017-01-31] MEDS: SODIUM CHLORIDE 0.9% FLUSH 10 ML FLUSH IV FLUSH SCH (09:11)
--- NOTE | 2017-01-31 09:48 | HHI.PR ---
Subjective Remarks resting comfortably with no distress. abdominal pain is minimal to mild. no nausea or vomiting. afebrile. Objective Vitals Vital Signs Date Time Temp Pulse Resp B/P Pulse Ox O2 Delivery O2 Flow Rate FiO2 01/31/17 08:00 97.4 67 17 133/63 97 01/31/17 04:00 96.1 69 17 128/61 96 01/31/17 00:00 96.6 69 17 144/66 98 01/30/17 20:00 96.1 72 17 124/68 96 01/30/17 16:00 96.6 70 16 146/65 96 01/30/17 12:00 97.2 67 16 142/68 95 I/O 01/30/17 01/30/17 01/30/17 01/31/17 01/31/17 01/31/17 07:00 15:00 23:00 07:00 15:00 23:00 Intake Total 1087 ml 803 ml 240 ml 540 ml 120 ml Output Total 500 ml 300 ml 850 ml Balance 587 ml 503 ml -610 ml 540 ml 120 ml Intake Oral 440 ml 240 ml 240 ml 240 ml 120 ml IV Total 647 ml 563 ml 300 ml Output Urine Total 500 ml 300 ml 800 ml Stool Total 50 ml # Voids 4 1 4 # Bowel Movements 0 1 Result Diagram: 01/31/17 0534 01/31/17 0536 Imaging Last Impressions Abdomen/Pelvis CT 01/27/17 1532 Signed Impressions: Service Date/Time: Friday, January 27, 2017 17:01 - CONCLUSION: 1. Acute diverticulitis with small abscess appears to be in the wall of the colon. 2. Left adnexal cystic and fluid containing process possibly in the left ovary or extension of the above-mentioned abscess. 3. Fatty liver. Andrea Duke MD Objective Remarks GENERAL: This is a well-nourished, well-developed patient, in no apparent distress. CARDIOVASCULAR: Regular rate and regular rhythm without murmurs, gallops, or rubs. RESPIRATORY: Clear to auscultation. Breath sounds equal bilaterally. No wheezes , rales, or rhonchi. GASTROINTESTINAL: Abdomen soft, mild LLQ tenderness, nondistended. Normal, active bowel sounds MUSCULOSKELETAL: Extremities without clubbing, cyanosis, or edema. NEURO: Alert & Oriented x4 to person, place, time, situation. Moves all ext x4 Procedures none Medications and IVs Current Medications Morphine Sulfate (Morphine Inj) 4 mg ONCE ONCE IV PUSH Last administered on 15:54; Start 01/27/17 at 15:45; Stop 01/27/17 at 15:46; Status DC Ondansetron HCl 4 mg 4 mg ONCE ONCE IVP Last administered on 01/27/17 15:54; Start 01/27/17 at 15:45; Stop 01/27/17 at 15:46; Status DC Sodium Chloride (NS 1000 ml Inj) 1,000 ml @ 1,000 mls/hr Q1H IV Last administered on 01/27/17 15:54; Start 01/27/17 at 15:32; Stop 01/27/17 at 16:31 ; Status DC Sodium Chloride 2 ml 2 ml UNSCH PRN IV FLUSH FLUSH AFTER USING IV ACCESS; Start 01/27/17 at 15:45; Stop 01/27/17 at 19:11; Status DC Ceftriaxone Sodium/Sodium Chloride (Rocephin Inj/NS Inj) 100 ml @ 200 mls/hr ONCE ONCE IV Last administered on 01/27/17 17:31; Start 01/27/17 at 17:15; Stop 01/27/17 at 17:44; Status DC Iohexol 85 ml 85 ml STK-MED ONCE IV ; Start 01/27/17 at 17:22; Stop 01/27/17 at 17:23; Status DC Ciprofloxacin/ Dextrose 200 ml @ 200 mls/hr ONCE ONCE IV Last administered on 01/27/17 20:00; Start 01/27/17 at 17:45; Stop 01/27/17 at 18:44; Status DC Metronidazole 100 ml @ 100 mls/hr ONCE ONCE IV Last administered on 18:00; Start 01/27/17 at 17:45; Stop 01/27/17 at 18:44; Status DC Sodium Chloride (NS 1000 ml Inj) 1,000 ml @ 70 mls/hr [id number] IV Last administered on 01/28/17 22:07; Start 01/27/17 at 19:05; Stop 01/29/17 at 07:51 ; Status DC Sodium Chloride (NS Flush) 2 ml UNSCH PRN IV FLUSH FLUSH AFTER USING IV ACCESS Last administered on 01/28/17 08:47; Start 01/27/17 at 19:15 Sodium Chloride (NS Flush) 2 ml BID IV FLUSH Last administered on 01/31/17 09: 11; Start 01/27/17 at 21:00 Acetaminophen (Tylenol) 650 mg Q4H PRN PO TEMP > 100.4; Start 01/27/17 at 19:15 Ondansetron HCl (Zofran Inj) 4 mg Q6H PRN IVP NAUSEA OR VOMITING Last administered on 01/30/17 09:19; Start 01/27/17 at 19:15 Temazepam (Restoril) 15 mg HS PRN PO INSOMNIA; Start 01/27/17 at 19:15 Acetaminophen (Tylenol) 650 mg Q6H PRN PO PAIN SCALE 1 TO 2; Start 01/27/17 at 19:15 Ketorolac Tromethamine (Toradol Inj) 15 mg Q6H PRN IVP Pain 3-5; if unable to take PO; Start 01/27/17 at 19:15; Stop 02/01/17 at 19:14 Ketorolac Tromethamine (Toradol Inj) 30 mg Q6H PRN IVP Pain 6-10;if unable to take PO Last administered on 01/29/17 13:37; Start 01/27/17 at 19:15; Stop at 19:14 Hydromorphone HCl (Dilaudid Pf Inj) 1 mg Q4H PRN IV BREAKTHROUGH PAIN; Start at 19:15 Naloxone HCl 0.4 mg 0.4 mg UNSCH PRN IV SEE LABEL COMMENTS; Start 01/27/17 at 19:15 Metronidazole 100 ml @ 100 mls/hr Q8H IV Last administered on 01/31/17 09:17; Start 01/28/17 at 02:00 Ciprofloxacin/ Dextrose (Cipro 400 Mg Premix) 200 ml @ 200 mls/hr Q12H IV Last administered on 01/31/17 09:10; Start 01/28/17 at 09:00 Lactobacillus Acidophilus (Lactinex) 1 tab Q12HR PO Last administered on 09:11; Start 01/27/17 at 21:00 Enalaprilat (Vasotec Inj) 1.25 mg Q6H PRN IV PUSH SBP>160, DBP>90; Start 01/27 at 19:15 Pantoprazole Sodium 40 mg 40 mg Q24H IV PUSH Last administered on 01/31/17 09: 11; Start 01/28/17 at 09:00 Potassium Chloride/Sodium Chloride (NS + KCl 20 Meq Inj) 1,000 ml @ 70 mls/hr [id number] IV Last administered on 01/29/17 21:23; Start 01/29/17 at 08:00; Stop at 11:43; Status DC A/P Assessment and Plan A/P 66-year-old female with: Sepsis due to Diverticulitis of large intestine with abscess without bleeding Continue Garyro, Flagyl; switch to po. colorectal surgery consult appreciated; recommended medical treatment at this time; abscess is too small to be drained at this time. diet was advanced . Leukocytosis-resolved Secondary to above Elevated blood pressure: improved No known history of hypertension, likely secondary to pain Pain management Vasotec when necessary mild hypokalemia; replaced. DVT prophylaxis: Bilateral SCDs GI prophylaxis: PPI Code Status Full code Discharge Planning dc home this afternoon if tolerates the diet. see med list. f/u; pcp and colorectal surgery. d/w the patient. Adriel Chambers MD January 31, 2017 09:48
[2017-01-31] MEDS ORDERED: NORC5TAB PO (09:49)
--- NOTE | 2017-01-31 09:50 | HHI.DCPOC ---
Discharge Care Plan Diagnosis: (1) Sepsis (2) Diverticulitis large intestine Additional Problems abdominal pain. Goals to Promote Your Health * To prevent worsening of your condition and complications * To maintain your health at the optimal level Directions to Meet Your Goals Take your medications as prescribed Follow your dietary instruction Follow activity as directed Keep your appointments as scheduled Take your immunizations and boosters as scheduled If your symptoms worsen call your PCP, if no PCP go to Urgent Care Center or Emergency Room Smoking is Dangerous to Your Health. Avoid second hand smoke Call the 24-hour hour crisis hotline for domestic abuse at Adriel Chambers MD January 31, 2017 09:49
--- NOTE | 2017-01-31 09:54 | HHI.DS ---
Discharge Summary Admission Date Jan 27, 2017 at 18:27 Discharge Date: January 31, 2017 Admitting Diagnosis Sigmoid Diverticulitis with Abscess (1) Sepsis ICD Code: A41.9 Diagnosis: Principal (2) Diverticulitis of large intestine with abscess without bleeding ICD Code: K57.20 Diagnosis: Principal (3) Abscess of sigmoid colon due to diverticulitis ICD Code: K57.20 Diagnosis: Principal (4) Leukocytosis ICD Code: D72.829 Diagnosis: Principal (5) Elevated blood pressure reading ICD Code: R03.0 Diagnosis: Secondary (6) Diverticulitis large intestine ICD Code: K57.32 Diagnosis: Principal Procedures none Brief History - From Admission 66-year-old female with a history of diverticular disease presented to the ED for evaluation of abdominal pain, bloating 5-6 days duration associated with diarrhea, nausea without any emesis. Pain is rated 10/10 in intensity and described as cramping, intermittent and worse with movement. Patient reports prior history of diverticular disease and states she's tried conservative treatment at home with full liquid and amoxicillin 500 mg 1 tablet by mouth twice a day 2 1/2 days without any improvement which she completed this past Sunday. She denies any febrile episode or associated GI bleed. CT Abdomen/ pelvis in ED reveals Acute diverticulitis with small abscess appears to be in the wall of the colon and abnormal labs include WBC 13.5 CBC/BMP: 01/31/17 0534 01/31/17 0536 Significant Findings Laboratory Tests Test 01/28/17 01/29/17 01/31/17 01/31/17 12:35 04:05 05:34 05:36 Hematocrit 34.7 % (35.0-46.0) Monocytes (%) (Auto) 10.0 % 10.0 % 10.6 % (0.0-8.0) (0.0-8.0) (0.0-8.0) Estimat Glomerular Filtration 80 ML/MIN (>89) 71 ML/MIN (>89) Rate Random Glucose 109 MG/DL 171 MG/DL (74-106) (74-106) Calcium Level 8.4 MG/DL 8.3 MG/DL (8.5-10.1) (8.5-10.1) Albumin 3.0 GM/DL (3.4-5.0) Potassium Level 3.4 MEQ/L 3.2 MEQ/L (3.5-5.1) (3.5-5.1) Chloride Level 108 MEQ/L (98-107) Blood Urea Nitrogen 3 MG/DL (7-18) Imaging Last Impressions Abdomen/Pelvis CT 01/27/17 1532 Signed Impressions: Service Date/Time: Friday, January 27, 2017 17:01 - CONCLUSION: 1. Acute diverticulitis with small abscess appears to be in the wall of the colon. 2. Left adnexal cystic and fluid containing process possibly in the left ovary or extension of the above-mentioned abscess. 3. Fatty liver. Andrea Duke MD PE at Discharge GENERAL: This is a well-nourished, well-developed patient, in no apparent distress. CARDIOVASCULAR: Regular rate and regular rhythm without murmurs, gallops, or rubs. RESPIRATORY: Clear to auscultation. Breath sounds equal bilaterally. No wheezes , rales, or rhonchi. GASTROINTESTINAL: Abdomen soft, mild LLQ tenderness, nondistended. Normal, active bowel sounds MUSCULOSKELETAL: Extremities without clubbing, cyanosis, or edema. NEURO: Alert & Oriented x4 to person, place, time, situation. Moves all ext x4 Hospital Course Sepsis due to Diverticulitis of large intestine with abscess without bleeding Continue Cipro, Flagyl; switch to po. colorectal surgery consult appreciated; recommended medical treatment at this time; abscess is too small to be drained at this time. diet was advanced . Leukocytosis-resolved Secondary to above Elevated blood pressure: improved No known history of hypertension, likely secondary to pain Pain management Vasotec when necessary mild hypokalemia; replaced. DVT prophylaxis: Bilateral SCDs GI prophylaxis: PPI Code Status Full code Pt Condition on Discharge: Good Discharge Disposition: Discharge Home Discharge Time: <= 30 minutes Discharge Instructions DIET: Follow Instructions for: As Tolerated, No Restrictions, Low Residue Diet Activities you can perform: Regular-No Restrictions Follow up Referrals: Colorectal Surgery - 2 Weeks with Elsa Bach MD PCP Follow-up New Medications: Ciprofloxacin (Cipro) 500 Mg Tab 500 MG PO BID Infection Days 7 Ref 0 TAB Hydrocodone-Acetaminophen ([place]) 5-325 mg Tab 1 TAB PO Q6H PRN PAIN #10 Ref 0 TAB Metronidazole (Metronidazole) 500 Mg Tab 500 MG PO QID Infection Days 7 Ref 0 TAB Adriel Chambers MD January 31, 2017 09:54
[2017-01-31] MEDS ORDERED: POTASSIUM CHLORIDE 10 MEQ CONTROLLED RELEASE TAB PO ONE (10:00)
[2017-01-31 11:59] VITALS: BP 140/67; PULSE 77; RESP 19; TEMP 97.9; O2SAT 96
[2017-01-31 16:00] VITALS: BP 147/71; PULSE 78; RESP 20; TEMP 98.4; O2SAT 95
[2017-02-08] MEDS ORDERED: BENEPOW8 PO ×2 (11:08→11:09)
== END 2017-01-31 18:04 | disposition home or self-care (01) | DRG 872 ==
LOC: PHED 14:57 → PHEDA 18:27 → N07A 21:48
PROVIDERS: ADMIT Internal Medicine; ATTEND Internal Medicine
DX: A41.9 Sepsis, unspecified organism (principal); K57.20 Diverticulitis of large intestine with perforation and abscess without bleeding; R03.0 Elevated blood-pressure reading, without diagnosis of hypertension; E87.6 Hypokalemia
CPT/HCPCS: 74177; 76937; 80048; 80053; 81001; 82272; 83605; 83690; 85025; 85610; 85730; 87086; 96361; 96365; 96367; 96375; C9113; J0696; J0744; J1885; J2270; J2405; J3480; J7030; Q9967

== ENCOUNTER 2017-05-14 14:43 | Inpatient (IN) | payer OTHER, MEDICARE ==
[~2017-05-14] VITALS: Ht 162.6 cm; Wt 99.0 kg
[~2017-05-14 14:43] MED LIST: DIAZ5 PO
[2017-05-18] VITALS (9 sets, daily range): BP systolic 107–152; BP diastolic 52–68; PULSE 72–93; RESP 18–20; TEMP 97.2–98.2; O2SAT 94–100
--- NOTE | 2017-05-18 07:06 | PD.HP.UP ---
H&P Update Note The Pre-Admit History and Physical Examination regarding the above named patient was reviewed (including, but not limited to, vital signs, heart, lungs, co-morbid conditions), and upon re-examination it is noted that: the patient's condition has not significantly changed since the last examination. Elsa Bach MD May 18, 2017 07:06
[2017-05-18] MEDS ORDERED: METOPROLOL TARTRATE 25 MG TAB PO PRN (07:30)
[2017-05-18] MEDS ORDERED: DEXT 5%-NACL 0.9% 1000 ML INJ 1,000 ML IV SCH (07:30)
[2017-05-18] MEDS ORDERED: ceFAZolin 2 GM PREMIX 50 ML IV SCH (07:30)
[2017-05-18] MEDS ORDERED: CHLORHEXIDINE GLUCONATE 2 % 1 PACK (2 CLOTHS) TOPICAL PRN (07:30)
[2017-05-18] MEDS ORDERED: INSULIN HUMAN REGULAR 1,000 UNITS/10 ML VIAL SQ PRN (07:30)
[2017-05-18] MEDS ORDERED: LACTATED RINGER'S 1000 ML IV PRN (07:30)
[2017-05-18] MEDS ORDERED: POVIDONE IODINE 5% (ANTISEPSIS KIT) 4 APPLICATIONS EACH NARE PRN (07:30)
[2017-05-18] MEDS ORDERED: SODIUM CHLORID 0.9% 500 ML IV PRN (07:30)
[2017-05-18] MEDS ORDERED: METRONIDAZOLE 500 MG/100 ML ISONTONIC SOLN IV SCH (07:30)
[2017-05-18] MEDS ORDERED: MIDAZOLAM HCL 2 MG/2 ML VIAL ONE (08:12)
[2017-05-18] MEDS ORDERED: ACETAMINOPHEN 1000 MG/100 ML VIAL IV ONE (08:12)
[2017-05-18] MEDS ORDERED: fentaNYL CITRATE 250 MCG/5 ML AMP ONE ×2 (08:13→09:21)
[2017-05-18] MEDS ORDERED: FAMOTIDINE 20 MG/2 ML VIAL ONE (08:13)
[2017-05-18] MEDS ORDERED: DEXAMETHASONE SOD PHOS 4 MG/ML VIAL ONE (08:13)
[2017-05-18] MEDS ORDERED: APREPITANT 40 MG CAP ONE (08:13)
--- NOTE | 2017-05-18 09:29 | PD.OP ---
Operative Report Date of Surgery: May 18, 2017 Preoperative Diagnosis: (1) Diverticulitis large intestine Postoperative Diagnosis: (1) Diverticulitis large intestine Procedure: Cystoscopy and placement of bilateral ureteral catheters Anesthesia: General Surgeon: Ashish Hardwick Teletypesetter Monitor(s): None Operation and Findings: Indication for procedure: Consult intraoperatively to pass bilateral ureteral catheters to aid in visualization of this patient's ureters during her colorectal procedure. Urologic procedure in detail: Concurrent with the colorectal surgeon Dr. Bach, I proceeded with placement of bilateral ureteral catheters as follows. Initially cystoscopic evaluation was performed utilizing the rigid cystoscope with the 22 [place] Islander sheath and 30 lens. Both right and left ureteral orifices were in correct anatomic position effluxing clear yellow urine. There were no bladder mucosal lesions, calculi or diverticula formation. There were no areas suspicious for fistula formation or bladder cancer. The bladder itself is mildly trabeculated. I next proceeded with passing a sensor 0.035 wire up the patient's left ureter without difficulty. The wire was advanced until small amount of resistance was met. Next a 6 [place]er open-ended ureteral catheter was advanced over the wire 25 cm in a cephalad direction. Once the catheter was replaced wire was withdrawn and reintroduced through secondary site via the cystoscope. In similar fashion the contralateral side was accomplished. Both catheters in place wire and cystoscope withdrawn and a 16 [place]er 10 cc Benavides catheter was placed. Both open -ended ureteral catheters were anchored to the Benavides via a connector and all catheters placed to gravity drainage. This completes urologic surgery portion of combined procedures on this patient. Ashish Hardwick MD May 18, 2017 09:29
[2017-05-18] MEDS ORDERED: HYDROmorphone HCL PF 2 MG/ML VIAL ONE (10:28)
[2017-05-18] MEDS ORDERED: ONDANSETRON HCL 4 MG/2 ML VIAL IV PUSH ONE (12:00)
[2017-05-18] MEDS ORDERED: LACTATED RINGER'S 1000 ML INJ 2,000 ML IV ONE (12:00)
[2017-05-18] MEDS ORDERED: ePHEDrine/NS 25 MG/5 ML SYR IV ONE (12:00)
[2017-05-18] MEDS ORDERED: NEOSTIGMINE 3 MG/3 ML SYR IV ONE (12:00)
[2017-05-18] MEDS ORDERED: PROPOFOL 200 MG/20 ML AMP IV ONE (12:00)
[2017-05-18] MEDS ORDERED: ceFAZolin INJ 1,000 MG VIAL IV ONE (13:00)
[2017-05-18] MEDS ORDERED: ENALAPRILAT 1.25 MG/ML VIAL IV PRN (13:15)
[2017-05-18] MEDS ORDERED: Post-op Orders (for Pharmacy) MISC XX ONE (13:15)
[2017-05-18] MEDS ORDERED: ONDANSETRON HCL 4 MG/2 ML VIAL IV PRN (13:15)
[2017-05-18] MEDS ORDERED: diphenhydrAMINE HCL 50 MG/ML VIAL IV PRN (13:15)
[2017-05-18] MEDS ORDERED: ACETAMINOPHEN 325 MG TAB PO PRN (13:15)
[2017-05-18] MEDS ORDERED: ACETAMINOPHEN/HYDROcodone 325 MG/5 MG TAB PO PRN ×2 (13:15)
[2017-05-18] MEDS ORDERED: POTASSIUM CHLOR 40 MEQ PREMIX 100 ML IV-CENTRAL PRN (13:15)
[2017-05-18] MEDS ORDERED: POTASSIUM CHLOR 20 MEQ PREMIX 100 ML IV PRN (13:15)
[2017-05-18] MEDS ORDERED: SODIUM CHLORIDE 0.9% FLUSH 5 ML FLUSH IVF PRN (13:15)
[2017-05-18] MEDS ORDERED: NALOXONE HCL 0.4 MG/ML AMP IV PRN (13:15)
[2017-05-18] MEDS ORDERED: ENALAPRILAT 2.5 MG/2 ML VIAL IV PRN (13:15)
[2017-05-18] MEDS ORDERED: BENZOCAINE 6 MG/MENTHOL 10 MG LOZENGE BUCCAL PRN (13:15)
[2017-05-18] MEDS ORDERED: *morphine SULFATE 8 MG/ML PERIprocedure ONLY ONE (13:35)
[2017-05-18] MEDS: PCA - TOTAL MG MORPHINE DELIVERED PER SHIFT SCH ×2 (14:00→22:00)
[2017-05-18] MEDS ORDERED: DO NOT ADM ANY ANTICOAGULANT DRUGS PRN (14:00)
[2017-05-18] MEDS ORDERED: *ONDANSETRON 4 MG VIAL PERIprocedural Use ONLY ONE (14:14)
[2017-05-18] MEDS: D5-NS + KCL 20 MEQ INJ 1,000 ML IV SCH ×2 (14:15→22:37)
[2017-05-18] MEDS: SODIUM CHLORIDE 0.9% FLUSH 5 ML FLUSH IVF SCH ×2 (14:15→21:00)
[2017-05-18 14:21] LABS: AUTOMATED NEUTROPHIL # 14.9 TH/MM3 (1.8-7.7); BASOPHIL % 0.2 % (0.0-2.0); HEMATOCRIT 40.7 % (35.0-46.0); HEMO FLAGS DIFF FINAL; LYMPH % 8.4 % (9.0-44.0); LYMPHOCYTE # 1.4 TH/MM3 (1.0-4.8); MEAN CELL VOLUME 85.9 FL (80.0-100.0); MEAN CORPUSCULAR HEMOGLOBIN 29.4 PG (27.0-34.0); MEAN CORPUSCULAR HGB CONC 34.2 % (32.0-36.0); MONO % 1.7 % (0.0-8.0); NEUT % 89.7 % (16.0-70.0); PLATELET COUNT 270 TH/MM3 (150-450); RED BLOOD COUNT 4.74 MIL/MM3 (4.00-5.30); RED CELL DISTRIBUTION WIDTH 13.3 % (11.6-17.2); WHITE BLOOD COUNT 16.6 TH/MM3 (4.0-11.0)
[2017-05-18] MEDS: KETOROLAC TROMETHAMINE 30 MG/ML (IVP) VIAL IVP SCH ×2 (14:35→22:05)
[2017-05-18] MEDS ORDERED: KETOROLAC TROMETHAMINE 30 MG/ML (IVP) VIAL IV PUSH ONE (14:35)
[2017-05-18 14:43] LABS: BICARBONATE 26.2 MEQ/L (21.0-32.0); POTASSIUM 3.4 MEQ/L (3.5-5.1)
[2017-05-18] MEDS ORDERED: MORPHINE SULFATE 30 MG/30 ML PCA IV SCH (16:00)
[2017-05-18] MEDS: metroNIDAZOLE 500 MG INJ 100 ML IV SCH (16:58)
[2017-05-19] VITALS (23 sets, daily range): BP systolic 115–140; BP diastolic 46–63; PULSE 69–96; RESP 16–19; TEMP 98.1–98.6; O2SAT 96–98
[2017-05-19] MEDS: metroNIDAZOLE 500 MG INJ 100 ML IV SCH ×2 (02:58→11:30)
[2017-05-19] MEDS: KETOROLAC TROMETHAMINE 30 MG/ML (IVP) VIAL IVP SCH ×4 (04:15→21:32)
[2017-05-19] MEDS: D5-NS + KCL 20 MEQ INJ 1,000 ML IV SCH ×3 (05:17→17:46)
[2017-05-19] MEDS: PCA - TOTAL MG MORPHINE DELIVERED PER SHIFT SCH ×3 (06:00→21:32)
--- NOTE | 2017-05-19 08:37 | MP ---
cc: PEÑA BACH M.D., HANNAH R. MD DATE OF SURGERY: 05/18/2017 PREOPERATIVE DIAGNOSIS: Diverticulitis POSTOPERATIVE DIAGNOSIS 1. Diverticulitis 2. Extensive adhesions. PROCEDURE 1. Robotic extensive lysis of adhesions. 2. Robotic low anterior resection. SURGEON Peña Bach MD. WASH BOX OPERATOR: Shaquille. ANESTHESIA General per ET tube ESTIMATED BLOOD LOSS 150 cc OPERATIVE INDICATIONS The patient is a 67-year-old female with a history of diverticulitis, complicated by abscess. OPERATIVE FINDINGS The liver was not well visualized due to some scar tissue over the previous cholecystectomy scar. The uterus and the right and left tube and ovary were visualized and were normal. The sigmoid colon was inflamed, thickened and folded over and adhesed down into the pelvis. There were no further visible abnormalities noted in the bowel. OPERATIVE COURSE: The patient was brought into the operating room and placed in the supine position. After induction of general anesthesia, the patient was placed in Michael stirrups and all bony prominences were carefully padded. The skin of the anterior abdominal wall, as well as the perineal area, was then prepped and draped in the usual sterile fashion. Dr. Hardwick then came in and performed cystoscopy, with placement of bilateral ureteral catheters. A site was then chosen for the camera, being located just to the right and above the umbilicus. A 10/12 trocar was placed at this location under direct vision using a laparoscope. CO2 insufflation was then undertaken, and a brief abdominal survey was performed, with nothing noted that would preclude the robotic approach. A 10/12 trocar, the #1, was then placed just inside the right anterior superior iliac spine. The #5 assist port was placed under the right costal margin, equal distance between the camera port and the #1 port. The patient was hydro planed with head down, and slightly to the right, and the omentum was brought up-and-over the transverse colon, dividing one small adhesion to the small bowel. The small bowel was brought up and out of the pelvis and to the right, and the descending colon was then evaluated. I felt that it most likely would require takedown of the splenic flexure. I was not completely sure but I did elect to place the remainder of ports as follows. The #3, a long DaVinci was placed in the left anterior axillary line, on a line with the umbilicus, and the #2, 8 DaVinci port, was placed in the left midclavicular line, two fingerbreadths above the umbilicus. The sigmoid colon was retracted down and to the left, and the mesentery was scored on the right. Dissection continued in this plane, freeing up the superior hemorrhoidal vessels from the posterior peritoneum. Dissection continued in this plane, but due to the patient's fairly significant fatty body habitus I was not able to visualize the left ureter. The sigmoid colon was retracted to the right and the lateral peritoneal attachments of the sigmoid colon were dissected free until the left ureter was clearly identified and swept away from the specimen. The sigmoid colon was then retracted to the left. A window was made around the vessels and the echelon endostapler was placed across the vessels, white load. This was closed, held for 30 seconds , fired, and removed. All dissection beds were examined and found to be without significant bleeding. Dissection then continued in the posterior plane down to level of the mid to lower rectum and up and around the right side. The sigmoid colon was then carefully dissected free from its fold over with the dense adhesions down into the pelvis. The anterior pelvis and lateral adhesions were the worst. This was then dissected free using electrocautery. Eventually we were able to pull this out and straighten out the sigmoid and rectum. Due to the large amount of dissection, there was quite a bit of oozing throughout the pelvis. Eventually a sponge stick was placed in the rectum and came up nicely. However when the EEA stapler was attempted be advanced, there was a small area of narrowing just at the peritoneal reflection. I elected to take the dissection back further. A site was then chosen for division of the mesentery, and this was divided using harmonic scalpel. A echelon Endo stapler was placed across the bowel at this level, closed, fired, and removed. At that point I evaluated and I felt after careful cleaning off of the fatty tissue around the distal staple line, that we possibly would need to take another small section out when we got to the open portion of the procedure. The tissue was cleared circumferentially off the rectal stump distally for a distance of approximately 1 to 1.5 cm, to allow for repeat stapling. The descending colon was retracted medially and the lateral peritoneal attachments of the descending colon were retracted free up to the level of but not including the splenic flexure. At this point I felt we had adequate length. All dissection beds were examined, and hemostasis was achieved with electrocautery. The robot was then undocked. A 10 cm vertical midline lower incision was made over a portion of her previous incision. Electrocautery was then carried down to the fascia of the anterior abdominal wall, which was split the length of the skin incision. The posterior fascia/peritoneum was incised the length of the skin incision as well. A wound protector was then placed, and the distal end of the bowel was grasped and pulled out through the abdominal incision. There was plenty of adequate length proximal to the bowel that was inflammatory. A site was then chosen and the mesentery was serially divided and ligated using 0 Vicryl ties. The pursestring stapling device was placed across the bowel. The distal bowel was occluded with a Cristhian clamp. The bowel was then amputated and taken to a back table were it was later opened and the findings noted above were confirmed. The anvil from the 29 EEA stapler was placed into the cut end of bowel, and the previously placed pursestring suture was secured. The stapler was then advanced through the anus and up to the rectal stump and lay in a nice orientation. A small amount of extra fibrofatty tissue needed to be removed. The spike was advanced just posterior to the staple line. The anvil was to the spike and the stapler was closed, and fired,thus creating an enteroenterotomuy. The resulting enterotomy appeared healthy and both anastomotic rings were noted to be complete. A small amount of warm normal saline was placed in the pelvis and the proximal bowel was occluded with digital pressure. Air was insufflated into the rectum until gentle tension was noted on the anastomosis with no sign of any leakage noted. The anastomosis lay in a nice orientation and had no tension. The peritoneal cavity was then thoroughly irrigated with warm normal saline, which returned clear effluent. The posterior fascia of the anterior abdominal wall was closed in running fashion, using #1 PDS, and the wound was copiously irrigated with warm normal saline. A Ray-James sponge and OpSite was placed over the wound and the CO2 insufflation was resumed. The 10/12 trocar sites at the umbilicus and the right lower quadrant were then closed using the crossbow device and 0 Vicryl suture. These were placed and held, but not tied until the CO2 was removed from the peritoneal cavity. The CO2 was removed as expeditiously as possible, and all other trocars were then removed. The skin at the anterior incision was then closed in a running fashion using 3-0 Vicryl. The port sites were closed in interrupted fashion using 3-0 Vicryl. Steri-Strips and sterile dressing was applied. All sponge, needle and the counts were correct and the patient was returned to the post anesthesia care in stable condition. MD AARON Casas/don /1:16 PM /8:14 AM SHAUNA
[2017-05-19] MEDS: SODIUM CHLORIDE 0.9% FLUSH 5 ML FLUSH IVF SCH ×2 (09:00→21:00)
[2017-05-19 09:43] LABS: AUTOMATED NEUTROPHIL # 8.6 TH/MM3 (1.8-7.7); BASOPHIL % 0.2 % (0.0-2.0); HEMATOCRIT 32.5 % (35.0-46.0); HEMO FLAGS DIFF FINAL; LYMPH % 13.5 % (9.0-44.0); LYMPHOCYTE # 1.5 TH/MM3 (1.0-4.8); MEAN CELL VOLUME 87.3 FL (80.0-100.0); MEAN CORPUSCULAR HEMOGLOBIN 29.1 PG (27.0-34.0); MEAN CORPUSCULAR HGB CONC 33.3 % (32.0-36.0); MONO % 9.9 % (0.0-8.0); NEUT % 76.4 % (16.0-70.0); PLATELET COUNT 236 TH/MM3 (150-450); RED BLOOD COUNT 3.72 MIL/MM3 (4.00-5.30); RED CELL DISTRIBUTION WIDTH 13.6 % (11.6-17.2); WHITE BLOOD COUNT 11.2 TH/MM3 (4.0-11.0)
[2017-05-19 09:57] LABS: BICARBONATE 23.4 MEQ/L (21.0-32.0)
[2017-05-19] MEDS: PANTOPRAZOLE SODIUM 40 MG VIAL IVP SCH (10:04)
--- NOTE | 2017-05-19 12:12 | HHI.PR ---
Subjective Remarks POD#1 s/p robotic/lap FRANCOIS, LAR comfortable, no nausea Objective Vital Signs Date Time Temp Pulse Resp B/P Pulse Ox O2 Delivery O2 Flow Rate FiO2 05/19/17 09:20 98 21 05/19/17 08:07 98.4 76 16 115/46 98 05/19/17 06:11 74 05/19/17 06:00 18 05/19/17 05:00 70 05/19/17 04:03 98.5 78 19 130/55 98 05/19/17 04:00 80 05/19/17 03:00 83 05/19/17 02:00 82 05/19/17 01:00 76 05/19/17 00:00 74 05/19/17 00:00 98.1 79 19 134/52 97 05/18/17 23:00 72 05/18/17 22:00 82 05/18/17 22:00 17 05/18/17 21:00 74 05/18/17 20:00 98.2 93 20 107/59 100 05/18/17 20:00 72 05/18/17 19:00 82 05/18/17 18:00 86 05/18/17 17:30 82 05/18/17 17:30 97.2 86 18 144/68 94 05/18/17 17:00 82 05/18/17 16:40 16 05/18/17 16:00 80 16 142/62 94 Nasal Cannula 3 05/18/17 15:30 82 16 149/65 94 Nasal Cannula 3 05/18/17 15:00 80 16 144/64 93 Nasal Cannula 3 05/18/17 14:45 78 16 152/75 93 Nasal Cannula 3 05/18/17 14:30 76 16 164/74 93 Nasal Cannula 3 05/18/17 14:15 94 16 175/80 93 Nasal Cannula 3 05/18/17 14:00 86 16 172/72 96 Nasal Cannula 3 05/18/17 13:45 80 16 162/70 95 Simple Mask 6 05/18/17 13:30 88 16 175/77 93 Simple Mask 6 05/18/17 13:25 98.7 88 16 165/75 90 Simple Mask 6 I/O 05/18/17 05/18/17 05/18/17 05/19/17 05/19/17 05/19/17 06:59 14:59 22:59 06:59 14:59 22:59 Intake Total 200 ml 3187 ml Output Total 450 ml 900 ml Balance -250 ml 2287 ml Intake Oral 800 ml IV Total 200 ml 2387 ml Output Urine Total 450 ml 900 ml Result Diagram: 05/19/1780105/19/17801 Objective Remarks Abdomen soft, nondistended, tender Wounds clean Assessment and Plan Assessment and Plan Doing well D/C stent, d/c samaniego later today D/C tele Advance diet Mobilize Decrease IVF Elsa Bach MD May 19, 2017 12:11
[2017-05-19] MEDS: HEPARIN SODIUM - SQ 10,000 UNITS/ML VIAL SQ SCH (13:41)
[2017-05-20] VITALS (9 sets, daily range): BP systolic 131–165; BP diastolic 50–77; PULSE 80–92; RESP 16–19; TEMP 97.5–99; O2SAT 94–96
[2017-05-20] MEDS: D5-NS + KCL 20 MEQ INJ 1,000 ML IV SCH ×3 (00:41→23:46)
[2017-05-20] MEDS: HEPARIN SODIUM - SQ 10,000 UNITS/ML VIAL SQ SCH ×2 (00:42→12:04)
[2017-05-20] MEDS: KETOROLAC TROMETHAMINE 30 MG/ML (IVP) VIAL IVP SCH ×4 (04:00→20:55)
[2017-05-20 05:01] LABS: AUTOMATED NEUTROPHIL # 5.6 TH/MM3 (1.8-7.7); BASOPHIL % 0.3 % (0.0-2.0); EOSINOPHIL # 0.2 TH/MM3 (0-0.4); EOSINOPHIL % 2.2 % (0.0-4.0); HEMATOCRIT 30.9 % (35.0-46.0); HEMO FLAGS DIFF FINAL; LYMPH % 25.6 % (9.0-44.0); LYMPHOCYTE # 2.3 TH/MM3 (1.0-4.8); MEAN CELL VOLUME 87.4 FL (80.0-100.0); MEAN CORPUSCULAR HEMOGLOBIN 30.1 PG (27.0-34.0); MEAN CORPUSCULAR HGB CONC 34.4 % (32.0-36.0); MONO % 9.1 % (0.0-8.0); NEUT % 62.8 % (16.0-70.0); PLATELET COUNT 215 TH/MM3 (150-450); RED BLOOD COUNT 3.54 MIL/MM3 (4.00-5.30); RED CELL DISTRIBUTION WIDTH 13.9 % (11.6-17.2); WHITE BLOOD COUNT 8.9 TH/MM3 (4.0-11.0)
[2017-05-20 05:24] LABS: BICARBONATE 25.3 MEQ/L (21.0-32.0); POTASSIUM 3.9 MEQ/L (3.5-5.1)
[2017-05-20] MEDS: PCA - TOTAL MG MORPHINE DELIVERED PER SHIFT SCH ×3 (06:00→20:30)
[2017-05-20] MEDS: SODIUM CHLORIDE 0.9% FLUSH 5 ML FLUSH IVF SCH ×2 (09:00→20:30)
[2017-05-20] MEDS: PANTOPRAZOLE SODIUM 40 MG VIAL IVP SCH (09:55)
[2017-05-20] MEDS: FUROSEMIDE 20 MG/2 ML VIAL IV PUSH SCH (16:56)
[2017-05-21] VITALS (8 sets, daily range): BP systolic 153–165; BP diastolic 58–81; PULSE 80–87; RESP 16–18; TEMP 97.4–98.7; O2SAT 94–97
[2017-05-21] MEDS: HEPARIN SODIUM - SQ 10,000 UNITS/ML VIAL SQ SCH ×2 (02:59→13:00)
[2017-05-21] MEDS: FUROSEMIDE 20 MG/2 ML VIAL IV PUSH SCH ×2 (02:59→17:40)
[2017-05-21] MEDS: KETOROLAC TROMETHAMINE 30 MG/ML (IVP) VIAL IVP SCH ×2 (02:59→08:55)
[2017-05-21] MEDS: PCA - TOTAL MG MORPHINE DELIVERED PER SHIFT SCH ×3 (02:59→22:00)
[2017-05-21] MEDS: D5-NS + KCL 20 MEQ INJ 1,000 ML IV SCH (03:05)
[2017-05-21 06:50] LABS: AUTOMATED NEUTROPHIL # 4.6 TH/MM3 (1.8-7.7); BASOPHIL % 0.6 % (0.0-2.0); EOSINOPHIL # 0.3 TH/MM3 (0-0.4); EOSINOPHIL % 3.6 % (0.0-4.0); HEMATOCRIT 37.3 % (35.0-46.0); HEMO FLAGS DIFF FINAL; LYMPH % 26.2 % (9.0-44.0); MEAN CELL VOLUME 86.7 FL (80.0-100.0); MEAN CORPUSCULAR HEMOGLOBIN 29.5 PG (27.0-34.0); MONO % 9.5 % (0.0-8.0); NEUT % 60.1 % (16.0-70.0); PLATELET COUNT 276 TH/MM3 (150-450); RED CELL DISTRIBUTION WIDTH 13.4 % (11.6-17.2); WHITE BLOOD COUNT 7.7 TH/MM3 (4.0-11.0)
[2017-05-21 07:11] LABS: BICARBONATE 27.8 MEQ/L (21.0-32.0); POTASSIUM 3.4 MEQ/L (3.5-5.1)
[2017-05-21] MEDS: PANTOPRAZOLE SODIUM 40 MG VIAL IVP SCH (08:55)
[2017-05-21] MEDS: SODIUM CHLORIDE 0.9% FLUSH 5 ML FLUSH IVF SCH ×2 (08:56→21:00)
--- NOTE | 2017-05-21 23:25 | HHI.PR ---
Subjective Remarks C/R surg POD # 3 afebrile, VSS maye PO On IVF Objective - Vital Signs Date Time Temp Pulse Resp B/P (MAP) Pulse Ox O2 Delivery O2 Flow Rate FiO2 05/21/17 20:00 98.7 84 16 153/71 (98) 94 05/21/17 19:19 21 05/18/17 16:00 Nasal Cannula 3 Result Diagram: 05/21/17 0403 05/21/17 0403 Objective Remarks PE alert Abd - soft, wound dry, mild tympany A/P Assessment and Plan Imp: adv diet dc ivf dc plans Marcello Rocha MD May 21, 2017 23:25
[2017-05-22] MEDS: HEPARIN SODIUM - SQ 10,000 UNITS/ML VIAL SQ SCH ×2 (01:14→14:43)
[2017-05-22 04:00] VITALS: BP 153/71; PULSE 77; RESP 16; TEMP 98.1; O2SAT 96
[2017-05-22] MEDS: FUROSEMIDE 20 MG/2 ML VIAL IV PUSH SCH (04:33)
[2017-05-22] MEDS: PCA - TOTAL MG MORPHINE DELIVERED PER SHIFT SCH ×2 (06:00→14:00)
[2017-05-22 08:30] VITALS: BP 147/72; PULSE 80; RESP 16; TEMP 98.3; O2SAT 94
[2017-05-22] MEDS: PANTOPRAZOLE SODIUM 40 MG VIAL IVP SCH (09:23)
[2017-05-22] MEDS: SODIUM CHLORIDE 0.9% FLUSH 5 ML FLUSH IVF SCH (09:24)
[2017-05-22 11:15] VITALS: BP 160/85; PULSE 87; RESP 16; TEMP 97.5; O2SAT 96
[2017-05-22 12:33] VITALS: O2SAT 94
[2017-05-22 16:10] VITALS: BP 163/85; PULSE 90; RESP 16; TEMP 98.3; O2SAT 96
--- NOTE | 2017-05-22 17:30 | HHI.PR ---
Subjective Remarks POD#4 s/p robotic/lap FRANCOIS, LAR comfortable, ready to go home Objective Vital Signs Date Time Temp Pulse Resp B/P (MAP) Pulse Ox O2 Delivery O2 Flow Rate FiO2 05/22/17 16:10 98.3 90 16 163/85 (111) 96 05/22/17 12:33 94 21 05/22/17 11:15 97.5 87 16 160/85 (110) 96 05/22/17 08:30 98.3 80 16 147/72 (97) 94 05/22/17 04:00 98.1 77 16 153/71 (98) 96 05/21/17 23:29 97.4 84 16 165/58 (93) 96 05/21/17 20:00 98.7 84 16 153/71 (98) 94 05/21/17 19:19 95 21 05/21/17 18:27 18 I/O 05/21/17 05/21/17 05/21/17 05/22/17 05/22/17 05/22/17 06:59 14:59 22:59 06:59 14:59 22:59 Intake Total 740 ml 1100 ml 600 ml Output Total 1300 ml 700 ml 1850 ml Balance -560 ml 400 ml -1250 ml Intake Oral 240 ml 600 ml 600 ml IV Total 500 ml 500 ml Output Urine Total 1300 ml 700 ml 1850 ml # Bowel Movements 0 4 Result Diagram: 05/21/1740205/21/17402 Objective Remarks Abdomen soft, nondistended, tender Wounds clean Assessment and Plan Assessment and Plan Doing well Home today Followup 3 weeks Elsa Bach MD May 22, 2017 17:29
[2017-05-22] MEDS ORDERED: HYDR-3516 PO (17:33)
--- NOTE | 2017-05-22 22:18 | MD ---
cc: PEÑA BACH M.D. ADMISSION DATE: 05/18/2017 DISCHARGE DATE: 05/22/2017 ADMISSION DIAGNOSIS Diverticulitis DISCHARGE DIAGNOSIS Diverticulitis PROCEDURES 1. Cystoscopy with placement of bilateral ureteral catheters. 2. Robotic/laparoscopic extensive lysis of adhesions. 3. Robotic low anterior resection. SURGEON Andrea Bach MD HOSPITAL COURSE The patient is a 67-year-old female who has had problems with diverticulitis with small abscesses. She was admitted to the hospital on May 18, after an outpatient bowel prep. She was taken to the operating room wehre she underwent the above-named procedures. Postoperatively, she did well with rapid return of bowel and bladder function. She was discharged to home with instructions to follow-up with myself in the office. The final pathology revealed diverticulosis. MD AARON Casas/ /5:30 PM /10:08 PM [email or web address]
== END 2017-05-22 19:20 | disposition home or self-care (01) | DRG 331 ==
LOC: HSDI 05-18 06:38 → HCIN 05-18 16:41
PROVIDERS: ADMIT Colon & Rectal Surgery; ATTEND Colon & Rectal Surgery
PROC: 8E0W4CZ Robotic Assisted Procedure of Trunk Region, Percutaneous Endoscopic Approach (ICD-10-PCS; 2017-05-18)
PROC: 0TJB8ZZ Inspection of Bladder, Via Natural or Artificial Opening Endoscopic (ICD-10-PCS; 2017-05-18)
PROC: 0T788DZ Dilation of Bilateral Ureters with Intraluminal Device, Via Natural or Artificial Opening Endoscopic (ICD-10-PCS; 2017-05-18)
PROC: 0DBN0ZZ Excision of Sigmoid Colon, Open Approach (ICD-10-PCS; principal; 2017-05-18 08:19)
PROC: 0DBP0ZZ Excision of Rectum, Open Approach (ICD-10-PCS; 2017-05-18 08:19)
DX: K57.32 Diverticulitis of large intestine without perforation or abscess without bleeding (principal)
CPT/HCPCS: 36415; 71020; 80048; 80053; 81001; 84155; 85025; 85610; 85730; 86850; 86900; 86901; 87077; 87086; 87186; 88307; 93005; 94150; C1769; C9113; J0131; J0690; J1100; J1170; J1644; J1885; J1940; J2250; J2270; J2405; J2710; J3010; J3480; J7120; J8501

== ENCOUNTER → 2017-05-15 | Outpatient (CLI) | payer OTHER ==
[~2017-05-15] MED LIST changes: +BENEPOW8 PO; +HYDR-3516 PO
--- NOTE | 2017-05-15 10:24 | RADRPT ---
EXAM DATE/TIME: 05/15/2017 09:46 [place] COMPARISON: No previous studies available for comparison. INDICATIONS : Evaluate pneumonia, pneumothorax or communicable disease.Preop chest for laproscopic sigmoid resectio n on 05/18/17, no chest complaints MEDICAL HISTORY : None. SURGICAL HISTORY : None. ENCOUNTER: Initial ACUITY: 1 day PAIN SCORE: 0/10 LOCATION: Bilateral chest FINDINGS: The heart is normal in size. The mediastinal contours are within normal limits. The lungs demonstrate some chronic appearing interstitial changes. There is a 3.4 x 1.8 cm pleural-ba sed mass along the lateral margin of the right upper lobe. The smoothly marginated nature this would suggest this likely benign however, followup chest x-ray in 3 months to document stability would be w arranted. CONCLUSION: 1. 3.4 x 1.8 cm pleural-based, smoothly marginated nodule along the lateral margin of the right upper lobe. A followup x-ray in 3 months document stability would be warranted. Alternatively, CT imaging through this could be performed. 2. No focal or segmental pneumonia identified. Fan Donahue MD on May 15, 2017 at 10:21 Board Certified Radiologist. This report was verified electronically.
[2017-05-15 10:28] LABS: AUTOMATED NEUTROPHIL # 3.5 TH/MM3 (1.8-7.7); BASOPHIL % 0.4 % (0.0-2.0); EOSINOPHIL # 0.1 TH/MM3 (0-0.4); EOSINOPHIL % 1.2 % (0.0-4.0); HEMATOCRIT 40.9 % (35.0-46.0); HEMO FLAGS DIFF FINAL; LYMPH % 41.4 % (9.0-44.0); MEAN CORPUSCULAR HEMOGLOBIN 29.3 PG (27.0-34.0); MEAN CORPUSCULAR HGB CONC 34.9 % (32.0-36.0); MONO % 9.2 % (0.0-8.0); NEUT % 47.8 % (16.0-70.0); PLATELET COUNT 303 TH/MM3 (150-450); RED BLOOD COUNT 4.87 MIL/MM3 (4.00-5.30); RED CELL DISTRIBUTION WIDTH 13.4 % (11.6-17.2); WHITE BLOOD COUNT 7.3 TH/MM3 (4.0-11.0)
[2017-05-15 10:35] LABS: APTT (PATIENT) 30.1 SEC (24.3-30.1); PROTHROMBIN TIME - PATIENT 10.6 SEC (9.8-11.6)
[2017-05-15 10:37] LABS: BACTERIA, URINE RARE /hpf; BLOOD, URINE SMALL (NEG); COMMENT (UR) CULTURE INDICATED; CULTURE IF INDICATED CULTURE INDICATED; GLUCOSE,URINE NEG (NEG); KETONE, URINE NEG (NEG); MUCUS URINE FEW /lpf (OCC); NITRITE,URINE NEG (NEG); SQUAMOUS EPITHELIAL CELL URINE 1 /hpf (0-5); URINE COLOR YELLOW (YELLW/STRAW)
[2017-05-15 11:53] LABS: ANION GAP 7 MEQ/L (5-15); AST (GOT) 21 U/L (15-37); BICARBONATE 26.7 MEQ/L (21.0-32.0); BLOOD UREA NITROGEN 10 MG/DL (7-18); CHLORIDE 107 MEQ/L (98-107); GLOMERULAR FILTRATION RATE 99 ML/MIN (>89); GLUCOSE,FASTING 109 MG/DL (74-99); POTASSIUM 3.2 MEQ/L (3.5-5.1); SODIUM (NA) 141 MEQ/L (136-145)
[2017-05-15 11:57] LABS: ALKALINE PHOSPHATASE 74 U/L (45-117); ALT (GPT) 34 U/L (10-53); TOTAL BILIRUBIN ADULT 0.6 MG/DL (0.2-1.0)
--- NOTE | 2017-05-15 13:49 | EKG ---
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
== END ==
LOC: CPRE 08:20
PROVIDERS: ATTEND Colon & Rectal Surgery
DX: Z01.812 Encounter for preprocedural laboratory examination (principal); Z01.810 Encounter for preprocedural cardiovascular examination; Z01.811 Encounter for preprocedural respiratory examination; K57.32 Diverticulitis of large intestine without perforation or abscess without bleeding; K57.40 Diverticulitis of both small and large intestine with perforation and abscess without bleeding; R94.31 Abnormal electrocardiogram [ECG] [EKG]; N39.0 Urinary tract infection, site not specified; B96.20 Unspecified Escherichia coli [E. coli] as the cause of diseases classified elsewhere; Z86.010 Personal history of colon polyps; Z12.11 Encounter for screening for malignant neoplasm of colon
CPT/HCPCS: 36415; 71020; 80053; 81001; 85025; 85610; 85730; 87077; 87086; 87186; 93005